=== PATIENT | male | born 1940 | race African-American/Black ===

== ENCOUNTER 2019-04-19 12:19 | Inpatient (IN) | payer OTHER ==
--- NOTE | 2019-04-19 12:48 | PDOC ---
History of Present Illness - General Chief Complaint: Coffee Ground Emesis Stated Complaint: Nausea/Vomiting Time Seen by Provider: 04/19/19 12:44 History Source: Patient, EMS, Correction Records Exam Limitations: Clinical Condition, Unresponsive, Other (Non-verbal) - History of Present Illness Initial Comments: History limited bc patient is non-verbal. Information obtained from EMS and [place] records. Mr. Kvng Pickering is a non-verbal 79 yo M coming from [facility] w a hx of chronic respiratory failure s/p tracheostomy, DVT on heparin, HTN, HLD, myasthenia gravis, GERD without known esophagitis, open angle glaucoma, chronic constipation, vitamin deficiencies, BPH, iron deficiency anemia, and contact dermatitis who presents to the [facility] with the chief complaint of nausea associated with 3 episodes of vomiting which was reported to be coffee ground emesis in appearance per the [place] records. PCP: Clif Woods PSH: Tracheostomy Social Hx: Resident of [facility]. Non-verbal. Trached. Allergies: NKA, NKDA Past History - Past Medical History Allergies/Adverse Reactions: Allergies Allergy/AdvReac Type Severity Reaction Status Date / Time No Known Allergies Allergy Verified 04/19/19 12:55 Home Medications: Ambulatory Orders Acetaminophen [Tylenol] 325 mg PEG QID PRN 04/19/19 Brimonidine Tartrate [Alphagan 0.15% -] 1 drop OU BID 04/19/19 FENTANYL 50mcg PATCH [DURAGESIC 50 mcg PATCH -] 1 each TD Q72H 04/19/19 Famotidine 20 mg PEG DAILY 04/19/19 Ferrous Sulfate 6.82 ml PEG DAILY 04/19/19 Heparin - 5,000 unit SQ BID 04/19/19 Latanoprost 0.005% Eye Drops [Xalatan 0.005% Eye Drops -] 1 drop OU HS 04/19/19 Metoprolol Tartrate 100 mg PEG BID 04/19/19 Multivitamin [One-Daily Multi-Vitamin] 1 each PEG DAILY 04/19/19 Polyethylene Glycol [Polyox Wsr-301] 1 gm PEG BID 04/19/19 Rosuvastatin Calcium [Crestor] 20 mg PEG HS 04/19/19 Sennosides [Senna] 2 tab PEG HS 04/19/19 Review of Systems - Review of Systems Able to Perform ROS?: No (Non-verbal) *Physical Exam - Physical Exam Comments: GENERAL: Contracted, skinny, malnourished. Looks uncomfortable and unresponsive. HEENT: Normocephalic, atraumatic. b/l cataracts. PERRL. CARDIOVASCULAR: Tachycardic rate PULMONARY: No evidence of respiratory distress. Lungs clear to auscultation bilaterally. No wheezing, rales or rhonchi. ABDOMEN: The Abdomen is soft with normal bowel sounds. There is a dislodged G-tube which is not secured to the abdomen which has coffee ground appearing material in it. There is no rigidity. Does not feel like a peritoneal abdomen. EXTREMITIES: Contracted. Limited ROM in all four extremities. SKIN: Warm, dry. Stage 1 sacral ulcer. Rectal Exam: positive: heme negative stool, normal exam, NL Prostate, normal rectal tone. negative: melena, decreased tone, heme positive stool, hemorrhoids Musculoskeletal: positive: Decreased Range of Motion Extremity: positive: Normal Capillary Refill, Pelvis Stable. negative: Normal Range of Motion Integumentary: positive: Normal Color, Dry, Warm Neurologic: positive: Respond to painful stimul ED Treatment Course - LABORATORY CBC & Chemistry Diagram: 04/19/19 13:00 04/19/19 13:00 Medical Decision Making - Medical Decision Making History limited bc patient is non-verbal. Information obtained from EMS and [place] records. Mr. Kvng Pickering is a non-verbal 79 yo M coming from [facility] w a hx of chronic respiratory failure s/p tracheostomy, DVT on heparin, HTN, HLD, myasthenia gravis, GERD without known esophagitis, open angle glaucoma, chronic constipation, vitamin deficiencies, BPH, iron deficiency anemia, and contact dermatitis who presents to the [facility] with the chief complaint of nausea associated with 3 episodes of vomiting which was reported to be coffee ground emesis in appearance per the [place] records. Vital Signs Temp Pulse Resp BP Pulse Ox 98.9 F 107 H 16 100/88 100 04/19/19 12:49 04/19/19 12:49 04/19/19 13:00 04/19/19 12:49 04/19/19 12:49 DDx IBNLT: GI bleed - Upper vs lower, gastroenteritis, PNA, electrolyte/ metabolic disturbance, Sepsis from other source. Plan: Labs, cultures, CXR, Abdominal CT, IV hydration, Admit to hospital. Labs show an elevated WBC count and lactic acid. - This clinical picture is highly suggestive of sepsis but we do not yet have a clear source. - Will obtain UA/UC - Starting the patient on empiric Vanc/Zosyn Jenny - Floor nurse at [facility]: 10:30 this morning noted that the patient had coffee ground vomitus. Patient vomited 3 times. Denies recent fever for past few days and patient is not currently taking Abx. CTAP: Unobtainable. We could not fit the patient in the CT machine secondary to knee contractures. I personally brought the patient to CT with a tech and respiratory therapist. We tried contorting the patient's body for 10 minutes in different ways but could not fit the knee through the machine secondary to his contractures. CBC,CMP WBC 18.7 K/mm3 (4.0-10.0) H 04/19/19 13:00 RBC 4.06 M/mm3 (4.00-5.60) 04/19/19 13:00 Hgb 11.4 GM/dL (11.7-16.9) L 04/19/19 13:00 Hct 35.4 % (35.4-49) 04/19/19 13:00 MCV 87.3 fl (80-96) 04/19/19 13:00 MCH 28.2 pg (25.7-33.7) 04/19/19 13:00 MCHC 32.3 g/dl (32.0-35.9) 04/19/19 13:00 RDW 16.6 % (11.9-15.9) H 04/19/19 13:00 Plt Count 371 K/MM3 (134-434) 04/19/19 13:00 MPV 9.5 fl (7.5-11.1) 04/19/19 13:00 Absolute Neuts (auto) 16.7 K/mm3 (1.5-8.0) H 04/19/19 13:00 Neutrophils % 89.1 % (42.8-82.8) H 04/19/19 13:00 Lymphocytes % 7.9 % (8-40) L 04/19/19 13:00 Monocytes % 2.7 % (3.8-10.2) L 04/19/19 13:00 Eosinophils % 0.2 % (0-4.5) 04/19/19 13:00 Basophils % 0.1 % (0-2.0) 04/19/19 13:00 Nucleated RBC % 0 % (0-0) 04/19/19 13:00 Platelet Estimate Adequate 04/19/19 13:00 Platelet Comment No clumping noted 04/19/19 13:00 Retic Count 1.50 % (0.5-1.5) 04/19/19 13:00 Sodium 139 mmol/L (136-145) 04/19/19 13:00 Potassium 4.4 mmol/L (3.5-5.1) 04/19/19 13:00 Chloride 104 mmol/L (98-107) 04/19/19 13:00 Carbon Dioxide 24 mmol/L (21-32) 04/19/19 13:00 Anion Gap 11 MMOL/L (8-16) 04/19/19 13:00 BUN 35.5 mg/dL (7-18) H 04/19/19 13:00 Creatinine 1.1 mg/dL (0.55-1.3) 04/19/19 13:00 Est GFR (CKD-EPI)AfAm 74.65 04/19/19 13:00 Est GFR (CKD-EPI)NonAf 64.41 04/19/19 13:00 Random Glucose 127 mg/dL (74-106) H 04/19/19 13:00 Lactic Acid 3.8 mmol/L (0.4-2.0) H* 04/19/19 14:10 Calcium 10.5 mg/dL (8.5-10.1) H 04/19/19 13:00 Ferritin 333.9 ng/ml (8-388) 04/19/19 13:00 Total Bilirubin 0.3 mg/dL (0.2-1) 04/19/19 13:00 AST 49 U/L (15-37) H 04/19/19 13:00 ALT 93 U/L (13-61) H 04/19/19 13:00 Alkaline Phosphatase 213 U/L (45-117) H 04/19/19 13:00 LD Total 309 U/L (87-246) H 04/19/19 13:00 Creatine Kinase 90 U/L (26-308) 04/19/19 13:00 Troponin I 0.02 ng/ml (0.00-0.05) 04/19/19 13:00 Total Protein 8.8 g/dl (6.4-8.2) H 04/19/19 13:00 Albumin 3.3 g/dl (3.4-5.0) L 04/19/19 13:00 - Hydrating patient bc of the elevated lactic. Patient accepted to hospitalist for admission for further treatment and disposition. *DC/Admit/Observation/Transfer Diagnosis at time of Disposition: Coffee ground emesis - Discharge Dispostion Condition at time of disposition: Stable Decision to Admit order: Yes - Referrals - Patient Instructions - Post Discharge Activity
[2019-04-19] MEDS ORDERED: SODIUM CHLORIDE 1,000 ML IV STA (12:55)
[2019-04-19] MEDS ORDERED: PANTOPRAZOLE SODIUM 80 MG in SODIUM CHLORIDE 100 ML IVPB SCH (13:00)
[2019-04-19 13:25] LABS: BASO % 0.1 % (0-2.0); EOS % 0.2 % (0-4.5); HEMATOCRIT 35.4 % (35.4-49); HEMOGLOBIN 11.4 GM/dL (11.7-16.9); LYMPH % 7.9 % (8-40); MCH 28.2 pg (25.7-33.7); MCHC 32.3 g/dl (32.0-35.9); MEAN CELL VOLUME 87.3 fl (80-96); MEAN PLT VOLUME 9.5 fl (7.5-11.1); MONO % 2.7 % (3.8-10.2); NEUT % 89.1 % (42.8-82.8); PLATELET COUNT 371 K/MM3 (134-434); RBC 4.06 M/mm3 (4.00-5.60); RDW 16.6 % (11.9-15.9); WHITE BLOOD COUNT 18.7 K/mm3 (4.0-10.0)
[2019-04-19] MEDS ORDERED: PANTOPRAZOLE SODIUM 40 MG VIAL ONE (13:26)
[2019-04-19 13:27] LABS: INR 1.08 (0.83-1.09); PROTHROMBIN TIME (PATIENT) 12.7 SEC (9.7-13.0)
[2019-04-19 13:44] LABS: ALBUMIN 3.3 g/dl (3.4-5.0); BILIRUBIN,TOTAL 0.3 mg/dL (0.2-1); BLOOD UREA NITROGEN 35.5 mg/dL (7-18); CALCIUM 10.5 mg/dL (8.5-10.1); CREATININE 1.1 mg/dL (0.55-1.3); POTASSIUM 4.4 mmol/L (3.5-5.1); TOT PROT 8.8 g/dl (6.4-8.2)
[2019-04-19 14:13] LABS: PLATELET ESTIMATE ADEQUATE
[2019-04-19] MEDS ORDERED: VANCOMYCIN 1,000 MG in DEXTROSE 5%-WATER - 250 ML IVPB ONE (15:12)
[2019-04-19] MEDS ORDERED: PIPERACILLIN/TAZOB 4.5 GM 4.5 GM in DEXTROSE 5%-WATER 100 ML IVPB ONE (15:12)
[2019-04-19] MEDS ORDERED: SODIUM CHLORIDE 0.9% 500 ML INFUS.BAG IV ONE (15:17)
--- NOTE | 2019-04-19 15:36 | PDOC ---
Documentation entered by Jennifer Aldana SCRIBE, acting as scribe for Katelyn Middleton MD. Katelyn Middleton MD: This documentation has been prepared by the carissaibJovan hannah Lincy, SCRIBE, under my direction and personally reviewed by me in its entirety. I confirm that the documentation accurately reflects all work, treatment, procedures, and medical decision making performed by me. Attending Attestation - Resident Resident Name: Stevie Kim - ED Attending Attestation I have performed the following: I have examined & evaluated the patient, The case was reviewed & discussed with the resident, I agree w/resident's findings & plan, Exceptions are as noted - HPI HPI: 04/19/19 14:17 79 yo h/o trach / peg , HTN, HLD, DVT (on Heparin), resp failure, myasthenia gravis and GERD presents to the emergency department via EMS from [facility] presents to the emergency department with coffee ground emesis. Unable to obtain history from the patient secondary to patient being nonverbal, additional records obtained from [place] records and [place] staff. Per [place] records, the patient had 3 episodes of coffee ground emesis today. Patient denies abdominal pain. ( shakes head no when asked) - Physicial Exam PE: 04/19/19 15:32 eyes open, awake. responsive. trach in place, CDI at site. lungs wtih crackles at base , heart reg RR no mrg abd soft peg in place with dark material in tubing , ext wwp contracted, - Medical Decision Making 04/19/19 14:29 Call placed to [facility] 2:23 pm, waiting for a call back from the Nurs concession supervisor medical doctor nuclear medicineROYCE Quiñonez. 04/19/19 15:33 79 yo male h/o trach/ peg chronic resp failure, myastenia gravis, from [facility] for coffe groun emesis over trach, on exam noted dark material peg tubing, dark stool on exam. differential anemia, gi bleed, other infection causing n/v such as pna or uti, obstruction, plan cta/p cxr ua cultures lactate. lactate noted to be 3, h/h normal. ua sent CXR with right sided infiltrate, hazy heart border. will cover for sepsis, infiltrate. vent associated infection vanco and zosyn. ct a/p pending. dr Monsivais from [facility] paged for more information regarding recent admission at [facility]. left message for patient Son on cell phone, awaiting call back. Heart Score/ECG Review #1 ECG reviewed & interpreted by me at: 14:44 General ECG Interpretation: Sinus Rhythm, Normal Rate (87), Normal Intervals, No acute ischemic changes
[2019-04-19] MEDS ORDERED: VANCOMYCIN 1 GRAM (PRE-DOCKED) 1,000 MG/250 ML BAG IVPB ONE (15:51)
[2019-04-19] MEDS ORDERED: PIPERACILLIN/TAZOB 3.375 GM 3.375 GM/50 ML BAG IVPB ONE (15:51)
[2019-04-19] MEDS ORDERED: PATIENT'S OWN MEDICATION (NON-FORMULARY) (Acetaminophen [Tylenol] 325 MG) PEG PRN (19:35)
[2019-04-19] MEDS ORDERED: ACETAMINOPHEN 160 MG/5 ML *Children Solution PEG PRN (19:54)
[2019-04-19] MEDS ORDERED: SODIUM CHLORIDE 1,000 ML IV SCH (20:15)
--- NOTE | 2019-04-19 20:55 | HP ---
Admitting History and Physical - Primary Care Physician PCP: Clif Woods - Admission Chief Complaint: coffee ground emesis History of Present Illness: 79 year old M with h/o chronic resp insufficiency s/p trach to vent, FTT s/p PEG placement, HTN, HLD, myastenia gravis, GERD, chronic constipation, BPH, anemia, and DVT on SC heparin presents from [facility] for evaluation of three episodes of coffee ground emesis today. Patient was brought in by EMS for further evaluation. Patient is non-verbal and is chronically vent dependent, therefore much history or symptoms were difficult to obtain. In ED: Vitals: T 98.1, HR 101bpm, BP 120/76, RR 18 CXR with right sided infiltrate, hazy heart border. Labs: WBC 18.7, lactate 3.8, AST 49, ALT 93 Pt given IV fluids + protonix 80mg IVSS There was a planned abd CT scan due to elevated lactate, however, ED staff had difficulty placing pt on table to perform scan. Patient admitted for further management of UGIB. History Source: Medical Record Limitations to Obtaining History: Clinical Condition, Other (non-verbal) - Past Medical History DENIAL MANAGEMENT REPRESENTATIVE: Yes: Other (myasthenia gravis) Pulmonary: Yes: O2 Dependent, Other (vent dependent) Gastrointestinal: Yes: GERD, Other (PEG) Musculoskeletal: Yes: Other (severe contractures) - Past Surgical History Additional Past Surgical History: Tracheostomy PEG insertion - Advance Directives Advance Directives: No: Living Will, Health Care Proxy, DNR, Organ Donor, Tissue Donor, MOLST - Smoking History Smoking history: Unknown if ever smoked Have you smoked in the past 12 months: No - Alcohol/Substance Use Hx Alcohol Use: No - Social History Usual Living Arrangement: Yes: [facility] ADL: Support Services History of Recent Travel: No Home Medications - Allergies Allergies/Adverse Reactions: Allergies Allergy/AdvReac Type Severity Reaction Status Date / Time No Known Allergies Allergy Verified 04/19/19 12:55 - Home Medications Home Medications: Ambulatory Orders Acetaminophen [Tylenol] 325 mg PEG QID PRN 04/19/19 Brimonidine Tartrate [Alphagan 0.15% -] 1 drop OU BID 04/19/19 FENTANYL 50mcg PATCH [DURAGESIC 50 mcg PATCH -] 1 each TD Q72H 04/19/19 Famotidine 20 mg PEG DAILY 04/19/19 Ferrous Sulfate 6.82 ml PEG DAILY 04/19/19 Heparin - 5,000 unit SQ BID 04/19/19 Latanoprost 0.005% Eye Drops [Xalatan 0.005% Eye Drops -] 1 drop OU HS 04/19/19 Metoprolol Tartrate 100 mg PEG BID 04/19/19 Multivitamin [One-Daily Multi-Vitamin] 1 each PEG DAILY 04/19/19 Polyethylene Glycol [Polyox Wsr-301] 1 gm PEG BID 04/19/19 Rosuvastatin Calcium [Crestor] 20 mg PEG HS 04/19/19 Sennosides [Senna] 2 tab PEG HS 04/19/19 Family Disease History - Family Disease History Family History: Unable to Obtain (due to clinical status) Review of Systems Unable to obtain ROS, reason: due to clinical status Physical Examination Vital Signs: Vital Signs Temperature 98.8 F 04/19/19 16:26 Pulse Rate 93 H 04/19/19 16:26 Respiratory Rate 16 04/19/19 19:14 Blood Pressure 128/73 04/19/19 16:26 O2 Sat by Pulse Oximetry (%) 100 04/19/19 16:26 Constitutional: Yes: Calm, Cachectic, Thin Eyes: Yes: Conjunctiva Clear, PERRL HENT: Yes: Atraumatic, Normocephalic Neck: Yes: Supple, Decreased ROM Cardiovascular: Yes: Regular Rate and Rhythm Respiratory: Yes: Regular, Mechanically Ventilated Gastrointestinal: Yes: Normal Bowel Sounds, Soft Renal/: Yes: Incontinence (adult diaper in place) Breast(s): Yes: WNL Musculoskeletal: Yes: Joint Stiffness, Muscle Weakness Extremities: Yes: Other (contractures) Edema: No Peripheral Pulses WNL: Yes Peripheral Pulses: Left Radial: 2+, Right Radial: 2+ Integumentary: Yes: Venous Stasis Changes Labs: CBC, BMP 04/19/19 13:00 04/19/19 13:00 Imaging - Results Chest X-ray: Report Reviewed (CXR 04/19/2019 Chest: Infiltrate A single AP view of the chest has been submitted. There is a scoliosis with convexity to the right , tracheostomy tube with tip well above michael, normal heart, prominent knob and normal ana. The lungs are well expanded with some increased markings in the right hemithorax suggestive of atelectasis or infiltrate at the right base. There is fluid in the horizontal fissure. The left lung is relatively clear. The angles are sharp and the soft tissues are intact. Correlation recommended. Follow-up imaging suggested. Reported By: Chadwick Mensah MD 04/19 3800) X-ray: Report Reviewed (abd x-ray 04/19/2019 Impression: A single view of the abdomen does not include the pelvis. The distended loops of both large and small bowel but no sign of free air, scoliosis and convexity to the right. G- tube present. There is hand artifact at the right base. The findings could represent an ileus though a developing obstruction cannot be excluded. For more complete evaluation, correlation with the scheduled CT scan is suggested.) Problem List - Problems (1) Glaucoma Assessment/Plan: continue brimonidine and xalatan drops Code(s): H40.9 - UNSPECIFIED GLAUCOMA (2) Aspiration into airway Assessment/Plan: pt has dried blood in nares and most likely aspirated into resp tract Start vanco/zosyn trend wBC and temp curve Code(s): T17.908A - UNSP FB IN RESP TRACT, PART UNSP CAUSING OTH INJURY, INIT (3) Hyperlipidemia Assessment/Plan: crestor 20mg qhs Code(s): E78.5 - HYPERLIPIDEMIA, UNSPECIFIED (4) Chronic respiratory insufficiency Assessment/Plan: maintain vent ABG PRN if he decompensates duonebs QID Code(s): R06.89 - OTHER ABNORMALITIES OF BREATHING (5) DVT (deep venous thrombosis) Assessment/Plan: hold SC heparin RADHA stockings Code(s): I82.409 - ACUTE EMBOLISM AND THOMBOS UNSP DEEP VN UNSP LOWER EXTREMITY (6) Prophylactic measure Assessment/Plan: turn and position q2hrs hold senna/miralax Code(s): Z29.9 - ENCOUNTER FOR PROPHYLACTIC MEASURES, UNSPECIFIED (7) Coffee ground emesis Assessment/Plan: protonix drip trend H/H consider GI consult if bleeding recurs NPO for now PEG in place hold metoprolol as pt is normotensive Code(s): K92.0 - HEMATEMESIS (8) Chronic pain disorder Assessment/Plan: Fentanyl patch Q72hrs Code(s): G89.4 - CHRONIC PAIN SYNDROME Assessment/Plan code status: Full Attempts should be made to have family meeting to determine goals of care. Visit type - Emergency Visit Emergency Visit: Yes ED Registration Date: 04/19/19 Care time: The patient presented to the Emergency Department on the above date and was hospitalized for further evaluation of their emergent condition. - New Patient This patient is new to me today: Yes Date on this admission: 04/19/19 - Critical Care Critical Care patient: No
[2019-04-19] MEDS: ALBUTEROL SO4 2.5/IPRATROPIUM 0.5 INH SOL 3 ML VIAL.NEB. NEB SCH (23:30)
[2019-04-19] MEDS: BRIMONIDINE TARTRATE 0.15% OPHTHALMIC 5 ML BOTTLE OU SCH (23:57)
[2019-04-19] MEDS: ROSUVASTATIN CA 20 MG TABLET (FP) PO SCH (23:57)
[2019-04-19] MEDS: LATANOPROST 0.005% OPHTH SOLN 2.5ML BOTTLE OU SCH (23:58)
[2019-04-20] MEDS ORDERED: DEXTROSE 5%-WATER - 50 ML IVPB ONE ×3 (01:13→16:56)
[2019-04-20] MEDS ORDERED: PIPERACILLIN/TAZOBACTAM 3.375 GM VIAL IVPB ONE ×3 (01:13→16:56)
[2019-04-20] MEDS: PANTOPRAZOLE SODIUM 80 MG in SODIUM CHLORIDE 100 ML IVPB SCH ×4 (01:35→16:23)
[2019-04-20] MEDS ORDERED: PIPERACILLIN/TAZOB 3.375 GM 3.375 GM in DEXTROSE 5%-WATER - 50 ML IVPB SCH (02:00)
[2019-04-20] MEDS: PIPERACILLIN/TAZOB 3.375 GM 3.375 GM in DEXTROSE 5%-WATER - 50 ML IVPB SCH ×3 (02:25→17:13)
[2019-04-20] MEDS: fentaNYL 50mcg/hr PATCH.TD72 TD SCH (06:07)
[2019-04-20] MEDS: ALBUTEROL SO4 2.5/IPRATROPIUM 0.5 INH SOL 3 ML VIAL.NEB. NEB SCH ×4 (08:00→20:20)
[2019-04-20 08:20] LABS: HEMATOCRIT 28.4 % (35.4-49); HEMOGLOBIN 9.3 GM/dL (11.7-16.9); MCH 28.6 pg (25.7-33.7); MCHC 32.7 g/dl (32.0-35.9); MEAN CELL VOLUME 87.4 fl (80-96); MEAN PLT VOLUME 9.5 fl (7.5-11.1); PLATELET COUNT 221 K/MM3 (134-434); RBC 3.25 M/mm3 (4.00-5.60); RDW 16.3 % (11.9-15.9); WHITE BLOOD COUNT 10.5 K/mm3 (4.0-10.0)
[2019-04-20 08:22] LABS: INR 0.97 (0.83-1.09); PROTHROMBIN TIME (PATIENT) 11.5 SEC (9.7-13.0)
[2019-04-20 08:24] LABS: ACTIVATED PTT 17.6 SECONDS (25.2-36.5)
[2019-04-20 08:37] LABS: ALBUMIN 2.8 g/dl (3.4-5.0); BILIRUBIN,TOTAL 0.4 mg/dL (0.2-1); BLOOD UREA NITROGEN 25.6 mg/dL (7-18); CALCIUM 9.5 mg/dL (8.5-10.1); CREATININE 0.9 mg/dL (0.55-1.3); MAGNESIUM 2.4 mg/dL (1.8-2.4); PHOSPHOROUS 3.2 mg/dL (2.5-4.9); POTASSIUM 4.5 mmol/L (3.5-5.1); TOT PROT 7.4 g/dl (6.4-8.2)
[2019-04-20] MEDS ORDERED: VANCOMYCIN 1 GRAM (PRE-DOCKED) 1,000 MG/250 ML BAG IVPB ONE (10:00)
[2019-04-20] MEDS: BRIMONIDINE TARTRATE 0.15% OPHTHALMIC 5 ML BOTTLE OU SCH ×2 (11:46→21:55)
--- NOTE | 2019-04-20 12:26 | EKG ---
Test Reason : Blood Pressure : / mmHG Vent. Rate : 087 BPM Atrial Rate : 087 BPM P-R Int : 176 ms QRS Dur : 078 ms QT Int : 392 ms P-R-T Axes : 064 -14 032 degrees QTc Int : 471 ms POOR DATA QUALITY, INTERPRETATION MAY BE ADVERSELY AFFECTED NORMAL SINUS RHYTHM POSSIBLE LEFT ATRIAL ENLARGEMENT SEPTAL INFARCT , AGE UNDETERMINED ABNORMAL ECG NO PREVIOUS ECGS AVAILABLE Confirmed by WOODY QUIROS, HENRI ([id number]) on 04/20/2019 12:25:55 PM Referred By: Confirmed By:HENRI MCKAY MD
[2019-04-20] MEDS ORDERED: PT OWN MED DRAWER 7, Y5N ONE (12:28)
[2019-04-20] MEDS ORDERED: PNEUMOC 13-VAL CONJ-DIP CRM/PF 0.5 ML DISP.SYRIN IM ONE (12:30)
--- NOTE | 2019-04-20 13:14 | CON.ID ---
Consult Consult Specialty:: infectious diseases Referred by:: Dinora - Past Medical History TILE MECHANIC: Yes: Other (myasthenia gravis) Pulmonary: Yes: O2 Dependent, Other (vent dependent) Gastrointestinal: Yes: GERD, Other (PEG) Musculoskeletal: Yes: Other (severe contractures) - Alcohol/Substance Use Hx Alcohol Use: No - Smoking History Smoking history: Unknown if ever smoked Have you smoked in the past 12 months: No - Social History ADL: Support Services History of Recent Travel: No Home Medications - Allergies Allergies/Adverse Reactions: Allergies Allergy/AdvReac Type Severity Reaction Status Date / Time No Known Allergies Allergy Verified 04/19/19 12:55 - Home Medications Home Medications: Ambulatory Orders Acetaminophen [Tylenol] 325 mg PEG QID PRN 04/19/19 Brimonidine Tartrate [Alphagan 0.15% -] 1 drop OU BID 04/19/19 FENTANYL 50mcg PATCH [DURAGESIC 50 mcg PATCH -] 1 each TD Q72H 04/19/19 Famotidine 20 mg PEG DAILY 04/19/19 Ferrous Sulfate 6.82 ml PEG DAILY 04/19/19 Heparin - 5,000 unit SQ BID 04/19/19 Latanoprost 0.005% Eye Drops [Xalatan 0.005% Eye Drops -] 1 drop OU HS 04/19/19 Metoprolol Tartrate 100 mg PEG BID 04/19/19 Multivitamin [One-Daily Multi-Vitamin] 1 each PEG DAILY 04/19/19 Polyethylene Glycol [Polyox Wsr-301] 1 gm PEG BID 04/19/19 Rosuvastatin Calcium [Crestor] 20 mg PEG HS 04/19/19 Sennosides [Senna] 2 tab PEG HS 04/19/19 Physical Exam Vital Signs: Vital Signs Temperature 98.1 F 04/19/19 21:32 Pulse Rate 104 H 04/20/19 01:08 Respiratory Rate 04/20/19 12:39 Blood Pressure 148/76 04/20/19 01:08 O2 Sat by Pulse Oximetry (%) 100 04/20/19 01:54 Labs: CBC, BMP 04/20/19 07:40 04/20/19 07:40
--- NOTE | 2019-04-20 15:15 | PN ---
Progress Note, Physician Chief Complaint: Coffee Ground Emesis Pneumonia History of Present Illness: Previous notes and events reviewed awake and alert, non verbal mechanically ventilated NAD - Current Medication List Current Medications: Active Medications Acetaminophen (Tylenol *Children Solution* -) 320 mg PEG Q6H PRN PRN Reason: FEVER Albuterol/Ipratropium (Duoneb -) 1 amp NEB RQID [facility] Last Admin: 04/20/19 12:00 Dose: 1 amp Brimonidine Tartrate (Alphagan 0.15% -) 1 drop OU BID [facility] Last Admin: 04/20/19 11:46 Dose: 1 drop Fentanyl (Duragesic 50mcg Patch -) 1 patch TD Q72H [facility] Last Admin: 04/20/19 06:07 Dose: Not Given Pantoprazole Sodium 80 mg/ (Sodium Chloride) 100 mls @ 10 mls/hr IVPB Q10H [facility] Last Admin: 04/20/19 12:33 Dose: 10 mls/hr Sodium Chloride (Normal Saline -) 1,000 mls @ 50 mls/hr IV ASDIR [facility] Stop: 04/20/19 20:06 Last Admin: 04/20/19 01:48 Dose: 50 mls/hr Piperacillin Sod/Tazobactam (Sod 3.375 gm/ Dextrose) 50 mls @ 100 mls/hr IVPB Q8H-IV [facility]; Protocol Latanoprost (Xalatan 0.005% Eye Drops -) 1 drop OU [facility] Last Admin: 04/19/19 23:58 Dose: 1 drop Rosuvastatin Calcium (Crestor -) 20 mg PO [facility] Last Admin: 04/19/19 23:57 Dose: 20 mg - Objective Vital Signs: Vital Signs Temperature 98.1 F 04/19/19 21:32 Pulse Rate 104 H 04/20/19 01:08 Respiratory Rate 04/20/19 12:39 Blood Pressure 148/76 04/20/19 01:08 O2 Sat by Pulse Oximetry (%) 100 04/20/19 10:00 Constitutional: Yes: No Distress, Calm Eyes: Yes: Conjunctiva Clear HENT: Yes: Atraumatic Neck: Yes: Other (trach) Cardiovascular: Yes: Tachycardia Respiratory: Yes: Diminished, Mechanically Ventilated Gastrointestinal: Yes: Normal Bowel Sounds, Soft, Other (G tube) Genitourinary: Yes: Incontinence Musculoskeletal: Yes: Muscle Weakness Extremities: Yes: WNL Edema: No Neurological: Yes: Alert, Pre-Existing Deficit Psychiatric: Yes: Alert Labs: CBC, BMP 04/20/19 07:40 04/20/19 07:40 INR, PTT INR 0.97 (0.83-1.09) 04/20/19 07:40 - ....Imaging Chest X-ray: Report Reviewed X-ray: Report Reviewed Problem List - Problems (1) Aspiration into airway Assessment/Plan: -Pulm consult -CXR shows increased markings in the right hemithorax suggestive of atelectasis or infiltrate at the right lung base, fluid in the horizontal fissure -bronchodilators -suction as needed -Zosyn Code(s): T17.908A - UNSP FB IN RESP TRACT, PART UNSP CAUSING OTH INJURY, INIT (2) Chronic respiratory insufficiency Assessment/Plan: -Pulm on board -mechanical ventilator -bronchodilators -keep SpO2 >90% Code(s): R06.89 - OTHER ABNORMALITIES OF BREATHING (3) Coffee ground emesis Assessment/Plan: -GI on board -Hg 11.4-->9.3 -Iron panel ordered -monitor Hg daily -transfuse for Hg <8.0 -stool OB neg Code(s): K92.0 - HEMATEMESIS (4) Glaucoma Assessment/Plan: -Alphagan and Latanoprast Code(s): H40.9 - UNSPECIFIED GLAUCOMA (5) Hyperlipidemia Assessment/Plan: -Crestor Code(s): E78.5 - HYPERLIPIDEMIA, UNSPECIFIED (6) Anemia Assessment/Plan: -drop in Hg 11.4-9.3 -serial CBCs -monitor Hg daily -transfuse for Hg <8.0 -iron panel ordered Code(s): D64.9 - ANEMIA, UNSPECIFIED (7) Chronic pain disorder Assessment/Plan: -Fentanyl patch Code(s): G89.4 - CHRONIC PAIN SYNDROME Assessment/Plan see problem list SCDs
--- NOTE | 2019-04-20 15:17 | PN ---
Progress Note (short form) - Note Progress Note: PULMONARY CONSULTATION DICTATED 04/20/19 IMP CHRONIC RESPIRATORY FAILURE ? ASPIRATION COFFEE GROUND EMESIS MYASTHENIA GRAVIS HTN HLD S/P TRACH/PEG ANEMIA PLAN VENT SUPPORT ON AC MODE TRACHEAL SUCTIONING INHALED BRONCHODILATORS ABX PER ID F/U CHEST X-RAY MONITOR H+H NORMAL TRANSFUSION THRESHOLD DR SETH Problem List - Problems (1) Aspiration into airway Code(s): T17.908A - UNSP FB IN RESP TRACT, PART UNSP CAUSING OTH INJURY, INIT (2) Chronic respiratory insufficiency Code(s): R06.89 - OTHER ABNORMALITIES OF BREATHING (3) Coffee ground emesis Code(s): K92.0 - HEMATEMESIS (4) DVT (deep venous thrombosis) Code(s): I82.409 - ACUTE EMBOLISM AND THOMBOS UNSP DEEP VN UNSP LOWER EXTREMITY (5) Glaucoma Code(s): H40.9 - UNSPECIFIED GLAUCOMA
[2019-04-20 15:19] LABS: EPI CELLS 2.9 /HPF (0-5/HPF); HYALINE CASTS 19 /lpf (0-8); URINE APPEARANCE CLEAR; URINE BILIRUBIN NEGATIVE (NEGATIVE); URINE COLOR YELLOW; URINE GLUCOSE (UA) NEGATIVE (NEGATIVE); URINE KETONE NEGATIVE (NEGATIVE); URINE LEUK ESTERASE 2+ (NEGATIVE); URINE NITRITE POSITIVE (NEGATIVE); URINE PROTEIN 1+ (NEGATIVE); URINE RBC 2 /hpf (0-4); URINE UROBILINOGEN 0.2 mg/dL (0.2-1.0); URINE WBC 98 /hpf (0-5)
[2019-04-20 16:12] LABS: SERUM IRON SATURATION 15 % (15-55); TOTAL IRON BINDING CAPACITY 397 ug/dL (250-450)
--- NOTE | 2019-04-20 16:32 | CON.GI ---
Consult Consult Specialty:: Gastroenterology Referred by:: Tammy Perkins NP Reason for Consultation:: Coffee grd emesis - History of Present Illness Chief Complaint: Noncommunicative History of Present Illness: 79M transferred from [facility] for coffee grd emesis. NO melena reported. I lavaged the NG tube. NO blood found. There are no endoscopies on record at this hospital - History Source History Provided By: Medical Record Limitations to Obtaining History: Intubated - Past Medical History B[employer]OM: Yes: Other (myasthenia gravis) Cardio/Vascular: Yes: Hyperlipdemia Pulmonary: Yes: O2 Dependent, Other (vent dependent) Gastrointestinal: Yes: GERD, Other (PEG) Musculoskeletal: Yes: Other (severe contractures) Additional Medical History: glaucoma - Past Surgical History Additional Surgical History: has vertical upper midline incision that may be due to G tube insertion - Alcohol/Substance Use Hx Alcohol Use: No (inknown) - Smoking History Smoking history: Unknown if ever smoked Have you smoked in the past 12 months: No - Social History Usual Living Arrangement: Halfway ADL: Support Services History of Recent Travel: No Home Medications - Allergies Allergies/Adverse Reactions: Allergies Allergy/AdvReac Type Severity Reaction Status Date / Time No Known Allergies Allergy Verified 04/19/19 12:55 - Home Medications Home Medications: Ambulatory Orders Acetaminophen [Tylenol] 325 mg PEG QID PRN 04/19/19 Brimonidine Tartrate [Alphagan 0.15% -] 1 drop OU BID 04/19/19 FENTANYL 50mcg PATCH [DURAGESIC 50 mcg PATCH -] 1 each TD Q72H 04/19/19 Famotidine 20 mg PEG DAILY 04/19/19 Ferrous Sulfate 6.82 ml PEG DAILY 04/19/19 Heparin - 5,000 unit SQ BID 04/19/19 Latanoprost 0.005% Eye Drops [Xalatan 0.005% Eye Drops -] 1 drop OU HS 04/19/19 Metoprolol Tartrate 100 mg PEG BID 04/19/19 Multivitamin [One-Daily Multi-Vitamin] 1 each PEG DAILY 04/19/19 Polyethylene Glycol [Polyox Wsr-301] 1 gm PEG BID 04/19/19 Rosuvastatin Calcium [Crestor] 20 mg PEG HS 04/19/19 Sennosides [Senna] 2 tab PEG HS 04/19/19 Family Disease History - Family Disease History Family History: Unable to Obtain Review of Systems Unable to obtain ROS, reason: myasthenia gravis Physical Exam-GI Vital Signs: Vital Signs Temperature 98.3 F 04/20/19 14:00 Pulse Rate 104 H 04/20/19 14:00 Respiratory Rate 19 04/20/19 15:44 Blood Pressure 125/73 04/20/19 14:00 O2 Sat by Pulse Oximetry (%) 100 04/20/19 10:00 CBC,CMP WBC 10.5 K/mm3 (4.0-10.0) H 04/20/19 07:40 RBC 3.25 M/mm3 (4.00-5.60) L 04/20/19 07:40 Hgb 9.3 GM/dL (11.7-16.9) L 04/20/19 07:40 Hct 28.4 % (35.4-49) L D 04/20/19 07:40 MCV 87.4 fl (80-96) 04/20/19 07:40 MCH 28.6 pg (25.7-33.7) 04/20/19 07:40 MCHC 32.7 g/dl (32.0-35.9) 04/20/19 07:40 RDW 16.3 % (11.9-15.9) H 04/20/19 07:40 Plt Count 221 K/MM3 (134-434) D 04/20/19 07:40 MPV 9.5 fl (7.5-11.1) 04/20/19 07:40 Absolute Neuts (auto) 16.7 K/mm3 (1.5-8.0) H 04/19/19 13:00 Neutrophils % 89.1 % (42.8-82.8) H 04/19/19 13:00 Lymphocytes % 7.9 % (8-40) L 04/19/19 13:00 Monocytes % 2.7 % (3.8-10.2) L 04/19/19 13:00 Eosinophils % 0.2 % (0-4.5) 04/19/19 13:00 Basophils % 0.1 % (0-2.0) 04/19/19 13:00 Nucleated RBC % 0 % (0-0) 04/19/19 13:00 Platelet Estimate Adequate 04/19/19 13:00 Platelet Comment No clumping noted 04/19/19 13:00 Retic Count 1.50 % (0.5-1.5) 04/19/19 13:00 Sodium 141 mmol/L (136-145) 04/20/19 07:40 Potassium 4.5 mmol/L (3.5-5.1) 04/20/19 07:40 Chloride 110 mmol/L (98-107) H 04/20/19 07:40 Carbon Dioxide 25 mmol/L (21-32) 04/20/19 07:40 Anion Gap 6 MMOL/L (8-16) L 04/20/19 07:40 BUN 25.6 mg/dL (7-18) H 04/20/19 07:40 Creatinine 0.9 mg/dL (0.55-1.3) 04/20/19 07:40 Est GFR (CKD-EPI)AfAm 95.15 04/20/19 07:40 Est GFR (CKD-EPI)NonAf 82.09 04/20/19 07:40 Random Glucose 91 mg/dL (74-106) 04/20/19 07:40 Lactic Acid 1.4 mmol/L (0.4-2.0) 04/20/19 00:45 Calcium 9.5 mg/dL (8.5-10.1) 04/20/19 07:40 Phosphorus 3.2 mg/dL (2.5-4.9) 04/20/19 07:40 Magnesium 2.4 mg/dL (1.8-2.4) 04/20/19 07:40 Iron 58 ug/dL (38-169) 04/19/19 13:00 TIBC 397 ug/dL (250-450) 04/19/19 13:00 Iron Saturation 15 % (15-55) 04/19/19 13:00 Unsaturated IBC 339 ug/dL (111-343) 04/19/19 13:00 Ferritin 333.9 ng/ml (8-388) 04/19/19 13:00 Total Bilirubin 0.4 mg/dL (0.2-1) 04/20/19 07:40 AST 31 U/L (15-37) 04/20/19 07:40 ALT 63 U/L (13-61) H 04/20/19 07:40 Alkaline Phosphatase 171 U/L (45-117) H 04/20/19 07:40 LD Total 309 U/L (87-246) H 04/19/19 13:00 Creatine Kinase 90 U/L (26-308) 04/19/19 13:00 Troponin I 0.02 ng/ml (0.00-0.05) 04/19/19 13:00 Total Protein 7.4 g/dl (6.4-8.2) 04/20/19 07:40 Albumin 2.8 g/dl (3.4-5.0) L 04/20/19 07:40 Current Medications Generic Name Dose Route Start Last Admin Trade Name Freq PRN Reason Stop Dose Admin Acetaminophen 320 mg 04/19/19 19:54 Tylenol *Children Solution* - PEG Q6H PRN FEVER Albuterol/Ipratropium 1 amp 04/19/19 22:00 04/20/19 15:40 Duoneb - NEB 1 amp RQID [facility] Administration Brimonidine Tartrate 1 drop 04/19/19 22:00 04/20/19 11:46 Alphagan 0.15% - OU 1 drop BID [facility] Administration Fentanyl 1 patch 04/19/19 19:45 04/20/19 06:07 Duragesic 50mcg Patch - TD Not Given Q72H [facility] Pantoprazole Sodium 80 mg/ 100 mls @ 10 mls/hr 04/19/19 20:00 04/20/19 16:23 Sodium Chloride IVPB Not Given Q10H GODWIN 8 MG/HR Sodium Chloride 1,000 mls @ 50 mls/hr 04/19/19 20:15 04/20/19 01:48 Normal Saline - IV 04/20/19 20:06 50 mls/hr ASDIR [facility] Administration Piperacillin Sod/Tazobactam 50 mls @ 100 mls/hr 04/20/19 18:00 Sod 3.375 gm/ Dextrose IVPB Q8H-IV [facility] Protocol Latanoprost 1 drop 04/19/19 22:00 04/19/19 23:58 Xalatan 0.005% Eye Drops - OU 1 drop HS [facility] Administration Rosuvastatin Calcium 20 mg 04/19/19 22:00 04/19/19 23:57 Crestor - PO 20 mg HS [facility] Administration Constitutional: Yes: Calm Eyes: Yes: Conjunctiva Clear HENT: Yes: Normocephalic Neck: Yes: Other (tracheostomy intubated) Cardiovascular: Yes: Regular Rate and Rhythm Respiratory: Yes: CTA Bilaterally Gastrointestinal Inspection: Yes: Other (28Fr G tube) ...Auscultate: Yes: Normoactive Bowel Sounds ...Palpate: Yes: Soft, Other (no masses) ...Rectal Exam: Yes: Guaiac Negative (brown guaiac negative stool), Other (2+ prostate) Labs: CBC, BMP 04/20/19 07:40 04/20/19 07:40 INR, PTT INR 0.97 (0.83-1.09) 04/20/19 07:40 Problem List - Problems (1) Coffee ground emesis Assessment/Plan: No overt bleeding identified. Kvng may have vomited stagnant small bowel contents. If overt bleeding ensues an EGD will need to be considered. He may have narcotic effect on the bowels causing N/V Code(s): K92.0 - HEMATEMESIS (2) Anemia Code(s): D64.9 - ANEMIA, UNSPECIFIED (3) Myasthenia gravis Code(s): G70.00 - MYASTHENIA GRAVIS WITHOUT (ACUTE) EXACERBATION (4) Tracheostomy in place Code(s): Z93.0 - TRACHEOSTOMY STATUS (5) Gastrostomy in place Code(s): Z93.1 - GASTROSTOMY STATUS (6) DVT (deep venous thrombosis) Code(s): I82.409 - ACUTE EMBOLISM AND THOMBOS UNSP DEEP VN UNSP LOWER EXTREMITY Assessment/Plan Impression: - Nonsustained coffee grd emesis perhaps narcotic effect on the bowel compounding his bedridden state and leading to vomiting of stagnant small bowel contents. NO overt hemorrhage has manifested as yet Plan: -- Reglan IVPB --PPI empirically -- If no further vomiting can resume feedings in AM
[2019-04-20] MEDS ORDERED: METOCLOPRAMIDE HCL INJECTION 10 MG/2 ML VIAL IVPUSH PRN (16:48)
--- NOTE | 2019-04-20 17:57 | CONS ---
DATE OF CONSULTATION: 04/20/2019 PULMONARY CONSULTATION REFERRING PHYSICIAN: Ken Juares M.D. HISTORY OF PRESENT ILLNESS: The patient is a 79-year-old black male past medical history of trach, chronic respiratory failure, status post trach, PEG, hypertension, hyperlipidemia, DVT, myasthenia gravis, GERD, nonverbal, admitted to [facility] from intermediate secondary to coffee ground emesis. Patient apparently was at the intermediate had 3 episodes of coffee ground emesis. He was transferred to [facility] with the above. In the ER, he is noted to have increasing tracheal secretions. His chest x-ray performed revealed some haziness in the right lung field. He was admitted to floor and started on broad-spectrum antibiotics and possible aspiration. No further history is available at this time. The patient awake but not responsive to verbal stimuli. PAST MEDICAL HISTORY: Again includes chronic respiratory failure on ventilatory support, DVT, hypertension, hyperlipidemia status post trach/PEG, myasthenia, GERD. CURRENT MEDICATIONS: piperacillin, DuoNeb, normal saline, Crestor, Duragesic, Xalatan eyedrops, and Tapazole. REVIEW OF SYSTEMS: Unable to obtain. PHYSICAL EXAMINATION: GENERAL: The patient is a thin black male, awake, nonverbal, in no acute distress on ventilatory support. He is afebrile. VITAL SIGNS: Blood pressure 125/73, respiratory rate 18, O2 saturation is 100% . HEENT: Normocephalic, atraumatic. NECK: Supple. Trach is patent. HEART: Regular S1, S2. CHEST: Scattered rhonchi. ABDOMEN: Soft, bowel sounds positive. EXTREMITIES: No cyanosis, edema. LABORATORY: WBC is 10.5, hemoglobin 9.3, hematocrit 28.4, platelet count 221, 000. Of note on admission WBC was 18.7, hemoglobin 11.4 and hematocrit 35.4 with platelet count 371,000. BUN is 25, creatinine is 0.9. Chest x-ray increased markings in right hemithorax. IMPRESSION: 1. Chronic respiratory failure. 2. Coffee ground emesis. 3. Questionable aspiration, likely aspiration. 4. Myasthenia gravis. 5. Hypertension. 6. Hyperlipidemia. 7. Status post trach PEG. PLAN: Continue vent support on ac mode, tracheal suctioning, inhaled bronchodilators, antibiotics as per infectious disease, obtain follow up chest x-ray, monitor hemoglobin and hematocrit, normal transfusion threshold and GI evaluation. SHAWN SETH M.D. CHRISTI/[id number] MTDD
[2019-04-20] MEDS: ROSUVASTATIN CA 20 MG TABLET (FP) PO SCH (21:55)
[2019-04-20] MEDS: LATANOPROST 0.005% OPHTH SOLN 2.5ML BOTTLE OU SCH (21:55)
[2019-04-20] MEDS: PANTOPRAZOLE SODIUM 40 MG VIAL IVPUSH SCH (21:55)
[2019-04-21] MEDS ORDERED: PIPERACILLIN/TAZOBACTAM 3.375 GM VIAL IVPB ONE ×3 (01:23→17:24)
[2019-04-21] MEDS ORDERED: DEXTROSE 5%-WATER - 50 ML IVPB ONE ×3 (01:24→17:24)
[2019-04-21] MEDS: PIPERACILLIN/TAZOB 3.375 GM 3.375 GM in DEXTROSE 5%-WATER - 50 ML IVPB SCH ×3 (01:39→18:16)
[2019-04-21 07:55] LABS: ALBUMIN 2.6 g/dl (3.4-5.0); BILIRUBIN,TOTAL 0.5 mg/dL (0.2-1); BLOOD UREA NITROGEN 19.2 mg/dL (7-18); CALCIUM 9.1 mg/dL (8.5-10.1); CREATININE 0.9 mg/dL (0.55-1.3); POTASSIUM 3.8 mmol/L (3.5-5.1); TOT PROT 6.9 g/dl (6.4-8.2)
[2019-04-21] MEDS: ALBUTEROL SO4 2.5/IPRATROPIUM 0.5 INH SOL 3 ML VIAL.NEB. NEB SCH ×4 (09:27→20:50)
--- NOTE | 2019-04-21 10:25 | PN ---
Progress Note (short form) - Note Progress Note: Awake in NAD on AC Mode of vent, 40% FiO2. No acute events documented overnight. Intake & Output 04/18/19 04/19/19 04/20/19 04/21/19 23:59 23:59 23:59 23:59 Intake Total 1100 450 Output Total 700 100 Balance 400 350 Weight 132 lb 2 oz Last Vital Signs Temp Pulse Resp BP Pulse Ox 98.7 F 103 H 16 130/80 95 04/21/19 06:00 04/21/19 06:00 04/21/19 09:44 04/21/19 06:00 04/20/19 21:00 Active Medications Acetaminophen (Tylenol *Children Solution* -) 320 mg PEG Q6H PRN PRN Reason: FEVER Albuterol/Ipratropium (Duoneb -) 1 amp NEB RQID [facility] Last Admin: 04/21/19 09:27 Dose: 1 amp Brimonidine Tartrate (Alphagan 0.15% -) 1 drop OU BID [facility] Last Admin: 04/20/19 21:55 Dose: 1 drop Fentanyl (Duragesic 50mcg Patch -) 1 patch TD Q72H [facility] Last Admin: 04/20/19 06:07 Dose: Not Given Piperacillin Sod/Tazobactam (Sod 3.375 gm/ Dextrose) 50 mls @ 100 mls/hr IVPB Q8H-IV [facility]; Protocol Last Admin: 04/21/19 01:39 Dose: 100 mls/hr Latanoprost (Xalatan 0.005% Eye Drops -) 1 drop OU HS [facility] Last Admin: 04/20/19 21:55 Dose: 1 drop Metoclopramide HCl (Reglan Injection -) 10 mg IVPUSH Q8H PRN PRN Reason: NAUSEA AND/OR VOMITING Pantoprazole Sodium (Protonix Iv) 40 mg IVPUSH BID [facility] Last Admin: 04/20/19 21:55 Dose: 40 mg Rosuvastatin Calcium (Crestor -) 20 mg PO HS [facility] Last Admin: 04/20/19 21:55 Dose: 20 mg Constitutional: Yes: No Distress Eyes: Yes: Conjunctiva Clear HENT: Yes: Atraumatic Neck: Yes: Other (trach) Cardiovascular: Yes: S1S2 Respiratory: Yes: Diminished, Mechanically Ventilated Gastrointestinal: Yes: Normal Bowel Sounds, Soft, Other (G tube) Genitourinary: Yes: Incontinence Musculoskeletal: Yes: Muscle Weakness Extremities: Yes: WNL Edema: No Neurological: Yes: Alert, Pre-Existing Deficit Psychiatric: Yes: Alert Labs: Laboratory Results - last 24 hr 04/19/19 04/20/19 04/21/19 13:00 14:30 06:45 Retic Count 2.02 H D Sodium Potassium Chloride Carbon Dioxide Anion Gap BUN Creatinine Est GFR (CKD-EPI)AfAm Est GFR (CKD-EPI)NonAf Random Glucose Calcium Iron 58 TIBC 397 Iron Saturation 15 Unsaturated IBC 339 Ferritin Total Bilirubin AST ALT Alkaline Phosphatase Total Protein Albumin Urine Color Yellow Urine Appearance Clear Urine pH 6.0 Ur Specific [place] 1.020 Urine Protein 1+ H Urine Glucose (UA) Negative Urine Ketones Negative Urine Blood Negative Urine Nitrite Positive H Urine Bilirubin Negative Urine Urobilinogen 0.2 Ur Leukocyte Esterase 2+ H Urine WBC (Auto) 98 Urine RBC (Auto) 2 Urine Casts (Auto) 19 U Epithel Cells (Auto) 2.9 Urine Bacteria (Auto) 44.0 04/21/19 06:45 Retic Count Sodium 141 Potassium 3.8 Chloride 110 H Carbon Dioxide 26 Anion Gap 6 L BUN 19.2 H Creatinine 0.9 Est GFR (CKD-EPI)AfAm 95.15 Est GFR (CKD-EPI)NonAf 82.09 Random Glucose 84 Calcium 9.1 Iron TIBC Iron Saturation Unsaturated IBC Ferritin 185.9 Total Bilirubin 0.5 AST 25 ALT 54 Alkaline Phosphatase 159 H Total Protein 6.9 Albumin 2.6 L Urine Color Urine Appearance Urine pH Ur Specific [place] Urine Protein Urine Glucose (UA) Urine Ketones Urine Blood Urine Nitrite Urine Bilirubin Urine Urobilinogen Ur Leukocyte Esterase Urine WBC (Auto) Urine RBC (Auto) Urine Casts (Auto) U Epithel Cells (Auto) Urine Bacteria (Auto) Problem List - Problems (1) Aspiration into airway Code(s): T17.908A - UNSP FB IN RESP TRACT, PART UNSP CAUSING OTH INJURY, INIT (2) Chronic respiratory insufficiency Code(s): R06.89 - OTHER ABNORMALITIES OF BREATHING (3) Coffee ground emesis Code(s): K92.0 - HEMATEMESIS (4) DVT (deep venous thrombosis) Code(s): I82.409 - ACUTE EMBOLISM AND THOMBOS UNSP DEEP VN UNSP LOWER EXTREMITY (5) Glaucoma Code(s): H40.9 - UNSPECIFIED GLAUCOMA IMP CHRONIC RESPIRATORY FAILURE ? ASPIRATION COFFEE GROUND EMESIS MYASTHENIA GRAVIS HTN HLD S/P TRACH/PEG ANEMIA PLAN VENT SUPPORT ON AC MODE TRACHEAL SUCTIONING INHALED BRONCHODILATORS ABX PER ID MONITOR H+H NORMAL TRANSFUSION THRESHOLD REPEAT CXR DR LIN
--- NOTE | 2019-04-21 11:11 | PN ---
Progress Note, Physician Chief Complaint: Coffee Ground Emesis Pneumonia History of Present Illness: Previous notes and events reviewed awake and alert, non verbal mechanically ventilated NAD no acute events overnight - Current Medication List Current Medications: Active Medications Acetaminophen (Tylenol *Children Solution* -) 320 mg PEG Q6H PRN PRN Reason: FEVER Albuterol/Ipratropium (Duoneb -) 1 amp NEB RQID [facility] Last Admin: 04/21/19 09:27 Dose: 1 amp Brimonidine Tartrate (Alphagan 0.15% -) 1 drop OU BID [facility] Last Admin: 04/20/19 21:55 Dose: 1 drop Fentanyl (Duragesic 50mcg Patch -) 1 patch TD Q72H [facility] Last Admin: 04/20/19 06:07 Dose: Not Given Piperacillin Sod/Tazobactam (Sod 3.375 gm/ Dextrose) 50 mls @ 100 mls/hr IVPB Q8H-IV [facility]; Protocol Last Admin: 04/21/19 01:39 Dose: 100 mls/hr Latanoprost (Xalatan 0.005% Eye Drops -) 1 drop OU HS [facility] Last Admin: 04/20/19 21:55 Dose: 1 drop Metoclopramide HCl (Reglan Injection -) 10 mg IVPUSH Q8H PRN PRN Reason: NAUSEA AND/OR VOMITING Pantoprazole Sodium (Protonix Iv) 40 mg IVPUSH BID [facility] Last Admin: 04/20/19 21:55 Dose: 40 mg Rosuvastatin Calcium (Crestor -) 20 mg PO [facility] Last Admin: 04/20/19 21:55 Dose: 20 mg - Objective Vital Signs: Vital Signs Temperature 98.7 F 04/21/19 06:00 Pulse Rate 103 H 04/21/19 06:00 Respiratory Rate 16 04/21/19 09:44 Blood Pressure 130/80 04/21/19 06:00 O2 Sat by Pulse Oximetry (%) 95 04/20/19 21:00 Constitutional: Yes: No Distress, Calm Eyes: Yes: Conjunctiva Clear HENT: Yes: Atraumatic Cardiovascular: Yes: Regular Rate and Rhythm Respiratory: Yes: Diminished, Mechanically Ventilated Gastrointestinal: Yes: Normal Bowel Sounds, Soft, Other (G tube) Genitourinary: Yes: Incontinence Musculoskeletal: Yes: Muscle Weakness Extremities: Yes: WNL Edema: No Neurological: Yes: Alert, Pre-Existing Deficit Psychiatric: Yes: Alert Labs: CBC, BMP 04/20/19 07:40 04/21/19 06:45 INR, PTT INR 0.97 (0.83-1.09) 04/20/19 07:40 Problem List - Problems (1) Aspiration into airway Assessment/Plan: -Pulm consult -CXR shows increased markings in the right hemithorax suggestive of atelectasis or infiltrate at the right lung base, fluid in the horizontal fissure -bronchodilators -suction as needed -Zosyn -WBC 10.5 Code(s): T17.908A - UNSP FB IN RESP TRACT, PART UNSP CAUSING OTH INJURY, INIT (2) Chronic respiratory insufficiency Assessment/Plan: -Pulm on board -mechanical ventilator -bronchodilators -keep SpO2 >90% Code(s): R06.89 - OTHER ABNORMALITIES OF BREATHING (3) Coffee ground emesis Assessment/Plan: -GI on board -Hg 11.4-->9.3 -Iron panel ordered -monitor Hg daily -transfuse for Hg <8.0 -stool OB neg Code(s): K92.0 - HEMATEMESIS (4) Glaucoma Assessment/Plan: -Alphagan and Latanoprast Code(s): H40.9 - UNSPECIFIED GLAUCOMA (5) Hyperlipidemia Assessment/Plan: -Crestor Code(s): E78.5 - HYPERLIPIDEMIA, UNSPECIFIED (6) Anemia Assessment/Plan: -drop in Hg 11.4-9.3 -serial CBCs -monitor Hg daily -transfuse for Hg <8.0 -iron panel ordered Code(s): D64.9 - ANEMIA, UNSPECIFIED (7) Chronic pain disorder Assessment/Plan: -Fentanyl patch Code(s): G89.4 - CHRONIC PAIN SYNDROME Assessment/Plan see problem list SCDs
[2019-04-21] MEDS: PANTOPRAZOLE SODIUM 40 MG VIAL IVPUSH SCH ×2 (11:16→22:18)
[2019-04-21] MEDS: BRIMONIDINE TARTRATE 0.15% OPHTHALMIC 5 ML BOTTLE OU SCH ×2 (11:17→22:19)
--- NOTE | 2019-04-21 11:20 | PN ---
Progress Note, Physician History of Present Illness: stable no events over night on a/c mode - Current Medication List Current Medications: Active Medications Acetaminophen (Tylenol *Children Solution* -) 320 mg PEG Q6H PRN PRN Reason: FEVER Albuterol/Ipratropium (Duoneb -) 1 amp NEB RQID [facility] Last Admin: 04/21/19 09:27 Dose: 1 amp Brimonidine Tartrate (Alphagan 0.15% -) 1 drop OU BID [facility] Last Admin: 04/21/19 11:17 Dose: 1 drop Fentanyl (Duragesic 50mcg Patch -) 1 patch TD Q72H [facility] Last Admin: 04/20/19 06:07 Dose: Not Given Piperacillin Sod/Tazobactam (Sod 3.375 gm/ Dextrose) 50 mls @ 100 mls/hr IVPB Q8H-IV [facility]; Protocol Last Admin: 04/21/19 11:16 Dose: 100 mls/hr Latanoprost (Xalatan 0.005% Eye Drops -) 1 drop OU HS [facility] Last Admin: 04/20/19 21:55 Dose: 1 drop Metoclopramide HCl (Reglan Injection -) 10 mg IVPUSH Q8H PRN PRN Reason: NAUSEA AND/OR VOMITING Pantoprazole Sodium (Protonix Iv) 40 mg IVPUSH BID [facility] Last Admin: 04/21/19 11:16 Dose: 40 mg Rosuvastatin Calcium (Crestor -) 20 mg PO HS [facility] Last Admin: 04/20/19 21:55 Dose: 20 mg - Objective Vital Signs: Vital Signs Temperature 98.7 F 04/21/19 06:00 Pulse Rate 103 H 04/21/19 06:00 Respiratory Rate 16 04/21/19 09:44 Blood Pressure 130/80 04/21/19 06:00 O2 Sat by Pulse Oximetry (%) 95 04/20/19 21:00 Constitutional: Yes: Other (contracted) HENT: Yes: Atraumatic Neck: Yes: Other (trach in place) Respiratory: Yes: Poor Air Entry, Other Gastrointestinal: Yes: Soft, Hypoactive Bowel Sounds, Other Neurological: Yes: Alert Labs: CBC, BMP 04/20/19 07:40 04/21/19 06:45 INR, PTT INR 0.97 (0.83-1.09) 04/20/19 07:40 Assessment/Plan Problem List - Problems (1) Aspiration into airway Code(s): T17.908A - UNSP FB IN RESP TRACT, PART UNSP CAUSING OTH INJURY, INIT (2) Chronic respiratory insufficiency Code(s): R06.89 - OTHER ABNORMALITIES OF BREATHING (3) Coffee ground emesis Code(s): K92.0 - HEMATEMESIS (4) DVT (deep venous thrombosis) Code(s): I82.409 - ACUTE EMBOLISM AND THOMBOS UNSP DEEP VN UNSP LOWER EXTREMITY (5) Glaucoma Code(s): H40.9 - UNSPECIFIED GLAUCOMA chr resp failure aspiration coffee ground emesis htn trach/peg mg plan continue abx asp precautions
[2019-04-21 14:27] VITALS: BMI 21.3
[2019-04-21] MEDS ORDERED: SODIUM CHLORIDE 1,000 ML IV SCH (20:30)
[2019-04-21] MEDS: ROSUVASTATIN CA 20 MG TABLET (FP) PO SCH (22:18)
[2019-04-21] MEDS: LATANOPROST 0.005% OPHTH SOLN 2.5ML BOTTLE OU SCH (22:19)
[2019-04-22] MEDS ORDERED: PIPERACILLIN/TAZOBACTAM 3.375 GM VIAL IVPB ONE ×2 (01:48→08:37)
[2019-04-22] MEDS ORDERED: DEXTROSE 5%-WATER - 50 ML IVPB ONE ×2 (01:48→08:37)
[2019-04-22] MEDS: PIPERACILLIN/TAZOB 3.375 GM 3.375 GM in DEXTROSE 5%-WATER - 50 ML IVPB SCH (02:02)
[2019-04-22 07:38] LABS: HEMATOCRIT 23.8 % (35.4-49); HEMOGLOBIN 7.9 GM/dL (11.7-16.9); MCH 28.8 pg (25.7-33.7); MCHC 33.2 g/dl (32.0-35.9); MEAN CELL VOLUME 86.6 fl (80-96); MEAN PLT VOLUME 9.8 fl (7.5-11.1); RBC 2.75 M/mm3 (4.00-5.60); RDW 15.9 % (11.9-15.9); WHITE BLOOD COUNT 6.8 K/mm3 (4.0-10.0)
[2019-04-22 07:39] LABS: ALBUMIN 2.6 g/dl (3.4-5.0); BILIRUBIN,TOTAL 0.5 mg/dL (0.2-1); BLOOD UREA NITROGEN 15.5 mg/dL (7-18); CALCIUM 9.4 mg/dL (8.5-10.1); POTASSIUM 3.5 mmol/L (3.5-5.1); TOT PROT 6.9 g/dl (6.4-8.2)
[2019-04-22] MEDS: ALBUTEROL SO4 2.5/IPRATROPIUM 0.5 INH SOL 3 ML VIAL.NEB. NEB SCH ×4 (07:40→20:41)
[2019-04-22 08:06] LABS: SERUM IRON SATURATION 13 % (15-55); TOTAL IRON BINDING CAPACITY 280 ug/dL (250-450)
[2019-04-22 08:09] LABS: PLATELET COUNT 197 K/MM3 (134-434)
--- NOTE | 2019-04-22 09:15 | PN ---
Progress Note, Physician History of Present Illness: patient stable h and h bleeding - Current Medication List Current Medications: Active Medications Acetaminophen (Tylenol *Children Solution* -) 320 mg PEG Q6H PRN PRN Reason: FEVER Albuterol/Ipratropium (Duoneb -) 1 amp NEB RQID [facility] Last Admin: 04/21/19 20:50 Dose: 1 amp Brimonidine Tartrate (Alphagan 0.15% -) 1 drop OU BID [facility] Last Admin: 04/21/19 22:19 Dose: 1 drop Fentanyl (Duragesic 50mcg Patch -) 1 patch TD Q72H [facility] Last Admin: 04/20/19 06:07 Dose: Not Given Sodium Chloride (Normal Saline -) 1,000 mls @ 42 mls/hr IV ASDIR [facility] Last Admin: 04/21/19 22:18 Dose: 42 mls/hr Meropenem 1 gm/ Dextrose 100 mls @ 200 mls/hr IVPB Q8H-IV [facility] Latanoprost (Xalatan 0.005% Eye Drops -) 1 drop OU [facility] Last Admin: 04/21/19 22:19 Dose: 1 drop Metoclopramide HCl (Reglan Injection -) 10 mg IVPUSH Q8H PRN PRN Reason: NAUSEA AND/OR VOMITING Pantoprazole Sodium (Protonix Iv) 40 mg IVPUSH BID [facility] Last Admin: 04/21/19 22:18 Dose: 40 mg Rosuvastatin Calcium (Crestor -) 20 mg PO HS [facility] Last Admin: 04/21/19 22:18 Dose: 20 mg - Objective Vital Signs: Vital Signs Temperature 98.2 F 04/22/19 07:07 Pulse Rate 59 L 04/22/19 07:07 Respiratory Rate 16 04/22/19 07:14 Blood Pressure 126/64 04/22/19 07:07 O2 Sat by Pulse Oximetry (%) 100 04/21/19 21:00 Constitutional: Yes: No Distress, Calm Cardiovascular: Yes: Regular Rate and Rhythm Respiratory: Yes: Other (trach,vent) Musculoskeletal: Yes: Other Extremities: Yes: Other Neurological: Yes: Alert, Other Psychiatric: Yes: Other Labs: CBC, BMP 04/22/19 06:40 04/22/19 06:40 INR, PTT INR 0.97 (0.83-1.09) 04/20/19 07:40 Assessment/Plan Problem List - Problems (1) Aspiration into airway Code(s): T17.908A - UNSP FB IN RESP TRACT, PART UNSP CAUSING OTH INJURY, INIT (2) Chronic respiratory insufficiency Code(s): R06.89 - OTHER ABNORMALITIES OF BREATHING (3) Coffee ground emesis Code(s): K92.0 - HEMATEMESIS (4) DVT (deep venous thrombosis) Code(s): I82.409 - ACUTE EMBOLISM AND THOMBOS UNSP DEEP VN UNSP LOWER EXTREMITY (5) Glaucoma Code(s): H40.9 - UNSPECIFIED GLAUCOMA 6 uti patient now esbl plan will change abx to meropenam close watch nutrition rest as per the team
[2019-04-22] MEDS ORDERED: DEXTROSE 5%-WATER 100 ML IVPB ONE ×3 (09:22→22:28)
[2019-04-22] MEDS ORDERED: MEROPENEM 1 GM VIAL (RESTRICTED TO ID) IVPB ONE ×3 (09:22→22:28)
[2019-04-22] MEDS: MEROPENEM 1 GM in DEXTROSE 5%-WATER 100 ML IVPB SCH ×2 (09:43→17:48)
[2019-04-22] MEDS: PANTOPRAZOLE SODIUM 40 MG VIAL IVPUSH SCH ×2 (09:43→22:11)
[2019-04-22] MEDS: BRIMONIDINE TARTRATE 0.15% OPHTHALMIC 5 ML BOTTLE OU SCH ×2 (09:45→22:11)
--- NOTE | 2019-04-22 13:34 | PN.GI ---
GI Progress Note Subjective: GI NOte: Hb has dropped to 7.9. NO melena or vomiting. I was able to reach the son Kvng who tells me that his father had an ulcer dx'd at [facility] about 1 1/2 years ago. He had a 2nd EGD that found that it had healed. he also had a colonoscopy a t that time which revealed that the ulcer had healed. I explained that ths Hb has dropped and the ulcer may have recurred and advised an EGD. I explained that there is a risk of perforation and hemorrhage associated with EGD and that it occurs ion about 1:10,000 cases. He has granted an informed consent. I will do the EGD LIZY. - Objective Vital Signs: Vital Signs Temperature 98.2 F 04/22/19 07:07 Pulse Rate 89 04/22/19 10:30 Respiratory Rate 16 04/22/19 10:29 Blood Pressure 126/64 04/22/19 07:07 O2 Sat by Pulse Oximetry (%) 99 04/22/19 10:30 Laboratory Tests 04/19/19 04/20/19 04/21/19 13:00 07:40 06:45 Hgb 11.4 L 9.3 L Retic Count 2.02 H D Iron TIBC Iron Saturation Unsaturated IBC Ferritin 04/21/19 04/21/19 04/22/19 06:45 06:45 06:40 Hgb 7.9 L Retic Count Iron 37 L TIBC 280 Iron Saturation 13 L Unsaturated IBC 243 Ferritin 185.9 Constitutional: Calm ...Auscultate: Yes: Normoactive Bowel Sounds ...Palpate: Yes: Soft ...Percussion: Yes: Other (nontender) Labs: CBC, BMP 04/22/19 06:40 04/22/19 06:40 INR, PTT INR 0.97 (0.83-1.09) 04/20/19 07:40 Assessment/Plan Impression: - Nonsustained coffee grd emesis now with Hg drop with h/o previous ulcer mandates an EGD Plan: -- EGD today -- Continue PPI Problem List - Problems (1) Coffee ground emesis Code(s): K92.0 - HEMATEMESIS (2) Anemia Code(s): D64.9 - ANEMIA, UNSPECIFIED (3) Myasthenia gravis Code(s): G70.00 - MYASTHENIA GRAVIS WITHOUT (ACUTE) EXACERBATION (4) Tracheostomy in place Code(s): Z93.0 - TRACHEOSTOMY STATUS (5) Gastrostomy in place Code(s): Z93.1 - GASTROSTOMY STATUS (6) DVT (deep venous thrombosis) Code(s): I82.409 - ACUTE EMBOLISM AND THOMBOS UNSP DEEP VN UNSP LOWER EXTREMITY
--- NOTE | 2019-04-22 14:50 | PN ---
Progress Note (short form) - Note Progress Note: GI Procedure NOte: Please see EGD report. NO bleeding found. 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 I spoke with the son to inform him of the findings and advised a colonoscopy. I again discussed the risks of perforation and hemorrhage and he gave a verbal consent and will come in tomorrow to sign it. I have scheduled it for 04/25/19. Problem List - Problems (1) Coffee ground emesis Code(s): K92.0 - HEMATEMESIS (2) Anemia Code(s): D64.9 - ANEMIA, UNSPECIFIED (3) Myasthenia gravis Code(s): G70.00 - MYASTHENIA GRAVIS WITHOUT (ACUTE) EXACERBATION (4) Tracheostomy in place Code(s): Z93.0 - TRACHEOSTOMY STATUS (5) Gastrostomy in place Code(s): Z93.1 - GASTROSTOMY STATUS (6) DVT (deep venous thrombosis) Code(s): I82.409 - ACUTE EMBOLISM AND THOMBOS UNSP DEEP VN UNSP LOWER EXTREMITY
[2019-04-22 15:13] LABS: TRANSGLUTAMINASE IGA < 2 U/mL (0-3); TRANSGLUTAMINASE IGG 3 U/mL (0-5)
[2019-04-22] MEDS ORDERED: BISACODYL 5 MG TABLET.DR (FP) PO ONE (15:24)
--- NOTE | 2019-04-22 15:25 | PN ---
Progress Note, Physician History of Present Illness: PULMONARY awake,no distress on vent support ac mode,pt s/p egd trolerated procedure well, findings noted - Current Medication List Current Medications: Active Medications Acetaminophen (Tylenol *Children Solution* -) 320 mg PEG Q6H PRN PRN Reason: FEVER Albuterol/Ipratropium (Duoneb -) 1 amp NEB RQID [facility] Last Admin: 04/22/19 11:00 Dose: 1 amp Bisacodyl (Dulcolax -) 20 mg PO ONCE ONE Stop: 04/22/19 15:25 Brimonidine Tartrate (Alphagan 0.15% -) 1 drop OU BID [facility] Last Admin: 04/22/19 09:45 Dose: 1 drop Fentanyl (Duragesic 50mcg Patch -) 1 patch TD Q72H [facility] Last Admin: 04/20/19 06:07 Dose: Not Given Sodium Chloride (Normal Saline -) 1,000 mls @ 42 mls/hr IV ASDIR [facility] Last Admin: 04/21/19 22:18 Dose: 42 mls/hr Meropenem 1 gm/ Dextrose 100 mls @ 200 mls/hr IVPB Q8H-IV [facility] Last Admin: 04/22/19 09:43 Dose: 200 mls/hr Latanoprost (Xalatan 0.005% Eye Drops -) 1 drop OU HS [facility] Last Admin: 04/21/19 22:19 Dose: 1 drop Metoclopramide HCl (Reglan Injection -) 10 mg IVPUSH Q8H PRN PRN Reason: NAUSEA AND/OR VOMITING Pantoprazole Sodium (Protonix Iv) 40 mg IVPUSH BID [facility] Last Admin: 04/22/19 09:43 Dose: 40 mg Polyethylene Glycol/Electrolytes (Golytely Solution -) 4,000 ml PO ONCE ONE Stop: 04/24/19 09:01 Rosuvastatin Calcium (Crestor -) 20 mg PO HS [facility] Last Admin: 04/21/19 22:18 Dose: 20 mg - Objective Vital Signs: Vital Signs Temperature 98.8 F 04/22/19 09:40 Pulse Rate 89 04/22/19 10:30 Respiratory Rate 13 04/22/19 15:03 Blood Pressure 145/80 04/22/19 09:40 O2 Sat by Pulse Oximetry (%) 99 06/28/19 10:30 Constitutional: Yes: Calm, Thin Eyes: Yes: WNL HENT: Yes: WNL Neck: Yes: Supple (trach) Cardiovascular: Yes: Regular Rate and Rhythm, S1, S2 Respiratory: Yes: Rhonchi (few scattered rhonchi) Gastrointestinal: Yes: Normal Bowel Sounds, Soft Extremities: Yes: WNL Edema: No Labs: CBC, BMP 04/22/19 06:40 04/22/19 06:40 INR, PTT INR 0.97 (0.83-1.09) 04/20/19 07:40 Problem List - Problems (1) Aspiration into airway Code(s): T17.908A - UNSP FB IN RESP TRACT, PART UNSP CAUSING OTH INJURY, INIT (2) Chronic respiratory insufficiency Code(s): R06.89 - OTHER ABNORMALITIES OF BREATHING (3) Coffee ground emesis Code(s): K92.0 - HEMATEMESIS (4) DVT (deep venous thrombosis) Code(s): I82.409 - ACUTE EMBOLISM AND THOMBOS UNSP DEEP VN UNSP LOWER EXTREMITY (5) Glaucoma Code(s): H40.9 - UNSPECIFIED GLAUCOMA Assessment/Plan Problem List - Problems (1) Aspiration into airway Code(s): T17.908A - UNSP FB IN RESP TRACT, PART UNSP CAUSING OTH INJURY, INIT (2) Chronic respiratory insufficiency Code(s): R06.89 - OTHER ABNORMALITIES OF BREATHING (3) Coffee ground emesis Code(s): K92.0 - HEMATEMESIS (4) DVT (deep venous thrombosis) Code(s): I82.409 - ACUTE EMBOLISM AND THOMBOS UNSP DEEP VN UNSP LOWER EXTREMITY (5) Glaucoma Code(s): H40.9 - UNSPECIFIED GLAUCOMA IMP CHRONIC RESPIRATORY FAILURE ? ASPIRATION COFFEE GROUND EMESIS MYASTHENIA GRAVIS HTN HLD S/P TRACH/PEG ANEMIA PLAN VENT SUPPORT ON AC MODE TRACHEAL SUCTIONING INHALED BRONCHODILATORS ABX PER ID MONITOR H+H NORMAL TRANSFUSION THRESHOLD COLONOSCOPY ON THURSDAY DR SETH
[2019-04-22] MEDS: DEXTROSE 5%-0.45% SALINE 1,000 ML IV SCH (17:48)
--- NOTE | 2019-04-22 18:12 | PN ---
Progress Note, Physician Chief Complaint: Coffee ground emesis History of Present Illness: Saw pt earlier in AM NAD mechanical vent - Current Medication List Current Medications: Active Medications Acetaminophen (Tylenol *Children Solution* -) 320 mg PEG Q6H PRN PRN Reason: FEVER Albuterol/Ipratropium (Duoneb -) 1 amp NEB RQID [facility] Last Admin: 04/22/19 15:42 Dose: 1 amp Bisacodyl (Dulcolax Suppository -) 10 mg RC ONCE ONE Stop: 04/24/19 18:01 Brimonidine Tartrate (Alphagan 0.15% -) 1 drop OU BID [facility] Last Admin: 04/22/19 09:45 Dose: 1 drop Fentanyl (Duragesic 50mcg Patch -) 1 patch TD Q72H [facility] Last Admin: 04/20/19 06:07 Dose: Not Given Meropenem 1 gm/ Dextrose 100 mls @ 200 mls/hr IVPB Q8H-IV [facility] Last Admin: 04/22/19 17:48 Dose: 200 mls/hr Dextrose/Sodium Chloride (D5-1/2ns -) 1,000 mls @ 75 mls/hr IV ASDIR [facility] Last Admin: 04/22/19 17:48 Dose: 75 mls/hr Latanoprost (Xalatan 0.005% Eye Drops -) 1 drop OU HS [facility] Last Admin: 04/21/19 22:19 Dose: 1 drop Pantoprazole Sodium (Protonix Iv) 40 mg IVPUSH BID [facility] Last Admin: 04/22/19 09:43 Dose: 40 mg Polyethylene Glycol (Miralax (For Daily Use) -) 17 gm PEG TID [facility] Polyethylene Glycol/Electrolytes (Golytely Solution -) 4,000 ml GT ONCE ONE Stop: 04/24/19 09:01 Rosuvastatin Calcium (Crestor -) 20 mg PO HS [facility] Last Admin: 04/21/19 22:18 Dose: 20 mg - Objective Vital Signs: Vital Signs Temperature 98.8 F 04/22/19 09:40 Pulse Rate 89 04/22/19 10:30 Respiratory Rate 13 04/22/19 15:03 Blood Pressure 145/80 04/22/19 09:40 O2 Sat by Pulse Oximetry (%) 99 04/22/19 10:30 Constitutional: Yes: No Distress, Calm, Cachectic Cardiovascular: Yes: Regular Rate and Rhythm Respiratory: Yes: Mechanically Ventilated, Rhonchi (diffuse) Genitourinary: Yes: Incontinence Musculoskeletal: Yes: Other (generalized atrophy) Edema: Yes Edema: LLE: Trace, RLE: Trace Peripheral Pulses WNL: Yes Neurological: Yes: Pre-Existing Deficit Labs: CBC, BMP 04/22/19 06:40 04/22/19 06:40 INR, PTT INR 0.97 (0.83-1.09) 04/20/19 07:40 Assessment/Plan (1) Aspiration into airway Assessment/Plan: -Pulm consult -CXR shows increased markings in the right hemithorax suggestive of atelectasis or infiltrate at the right lung base, fluid in the horizontal fissure -bronchodilators -suction as needed -Zosyn -leukocytosis resolved Code(s): T17.908A - UNSP FB IN RESP TRACT, PART UNSP CAUSING OTH INJURY, INIT (2) Chronic respiratory insufficiency Assessment/Plan: -Pulm on board -mechanical ventilator -bronchodilators -keep SpO2 >90% Code(s): R06.89 - OTHER ABNORMALITIES OF BREATHING (3) Coffee ground emesis Assessment/Plan: -GI on board -gradual drop in H/H -EGD today -Iron panel low% -Start Ferrous sulfate via GT -monitor Hg daily -transfuse for Hg <7.0 -stool OB neg Code(s): K92.0 - HEMATEMESIS (4) Glaucoma Assessment/Plan: -Alphagan and Latanoprast Code(s): H40.9 - UNSPECIFIED GLAUCOMA (5) Hyperlipidemia Assessment/Plan: -Crestor Code(s): E78.5 - HYPERLIPIDEMIA, UNSPECIFIED (6) Anemia Assessment/Plan: -drop in H/H -EGD today- no bleeding -Will need colonoscopy on 04/25/19 -PPI BID -serial CBCs -monitor Hg daily -transfuse for Hg <7.0 to avoid fluid overload -Start Ferrous sulfate Code(s): D64.9 - ANEMIA, UNSPECIFIED (7) Chronic pain disorder Assessment/Plan: -Fentanyl patch Code(s): G89.4 - CHRONIC PAIN SYNDROME
[2019-04-22] MEDS: ROSUVASTATIN CA 20 MG TABLET (FP) PO SCH (22:07)
[2019-04-22] MEDS: fentaNYL 50mcg/hr PATCH.TD72 TD SCH (22:09)
[2019-04-22] MEDS: POLYETHYLENE GLYCOL 3350 119 GM BTL PEG SCH (22:11)
[2019-04-22] MEDS: LATANOPROST 0.005% OPHTH SOLN 2.5ML BOTTLE OU SCH (22:11)
[2019-04-22] MEDS ORDERED: PT OWN MED DRAWER 7, Y5N ONE (22:26)
[2019-04-23] MEDS: MEROPENEM 1 GM in DEXTROSE 5%-WATER 100 ML IVPB SCH ×3 (01:09→17:34)
[2019-04-23] MEDS: DEXTROSE 5%-0.45% SALINE 1,000 ML IV SCH ×2 (05:22→15:35)
[2019-04-23] MEDS: POLYETHYLENE GLYCOL 3350 119 GM BTL PEG SCH ×2 (05:23→15:35)
[2019-04-23 07:52] LABS: BASO % 0.5 % (0-2.0); EOS % 6.5 % (0-4.5); HEMATOCRIT 23.5 % (35.4-49); HEMOGLOBIN 7.8 GM/dL (11.7-16.9); LYMPH % 21.3 % (8-40); MCH 28.9 pg (25.7-33.7); MCHC 33.2 g/dl (32.0-35.9); MEAN CELL VOLUME 86.9 fl (80-96); MEAN PLT VOLUME 9.4 fl (7.5-11.1); MONO % 9.9 % (3.8-10.2); NEUT % 61.8 % (42.8-82.8); RBC 2.71 M/mm3 (4.00-5.60); WHITE BLOOD COUNT 4.8 K/mm3 (4.0-10.0)
[2019-04-23] MEDS: ALBUTEROL SO4 2.5/IPRATROPIUM 0.5 INH SOL 3 ML VIAL.NEB. NEB SCH ×4 (08:00→21:23)
[2019-04-23 08:17] LABS: ALBUMIN 2.5 g/dl (3.4-5.0); BILIRUBIN,TOTAL 0.4 mg/dL (0.2-1); BLOOD UREA NITROGEN 12.3 mg/dL (7-18); CALCIUM 9.1 mg/dL (8.5-10.1); CREATININE 0.8 mg/dL (0.55-1.3); POTASSIUM 3.3 mmol/L (3.5-5.1); TOT PROT 6.6 g/dl (6.4-8.2)
[2019-04-23] MEDS ORDERED: MEROPENEM 1 GM VIAL (RESTRICTED TO ID) IVPB ONE ×2 (08:49→17:14)
[2019-04-23] MEDS ORDERED: DEXTROSE 5%-WATER 100 ML IVPB ONE ×2 (08:50→17:14)
[2019-04-23] MEDS ORDERED: PT OWN MED DRAWER 7, Y5N ONE (08:50)
[2019-04-23 09:07] LABS: PLATELET COUNT 191 K/MM3 (134-434)
[2019-04-23] MEDS: FERROUS SO4 300 MG/5 ML ORAL SOLN UNIT DOSE CUPS GT SCH (09:43)
[2019-04-23] MEDS: PANTOPRAZOLE SODIUM 40 MG VIAL IVPUSH SCH (09:43)
[2019-04-23] MEDS: BRIMONIDINE TARTRATE 0.15% OPHTHALMIC 5 ML BOTTLE OU SCH (09:45)
[2019-04-23] MEDS ORDERED: FUROSEMIDE 40 MG/4 ML INJECTABLE VIAL IVPUSH ONE ×2 (09:51→16:00)
--- NOTE | 2019-04-23 09:52 | PN ---
Progress Note, Physician - Current Medication List Current Medications: Active Medications Acetaminophen (Tylenol *Children Solution* -) 320 mg PEG Q6H PRN PRN Reason: FEVER Albuterol/Ipratropium (Duoneb -) 1 amp NEB RQID [facility] Last Admin: 04/23/19 08:00 Dose: 1 amp Bisacodyl (Dulcolax Suppository -) 10 mg RC ONCE ONE Stop: 04/24/19 18:01 Brimonidine Tartrate (Alphagan 0.15% -) 1 drop OU BID [facility] Last Admin: 04/23/19 09:45 Dose: 1 drop Fentanyl (Duragesic 50mcg Patch -) 1 patch TD Q72H [facility] Last Admin: 04/22/19 22:09 Dose: 1 patch Ferrous Sulfate (Feosol) 300 mg GT DAILY [facility] Last Admin: 04/23/19 09:43 Dose: 300 mg Meropenem 1 gm/ Dextrose 100 mls @ 200 mls/hr IVPB Q8H-IV [facility] Last Admin: 04/23/19 09:42 Dose: 200 mls/hr Dextrose/Sodium Chloride (D5-1/2ns -) 1,000 mls @ 75 mls/hr IV ASDIR [facility] Last Admin: 04/23/19 05:22 Dose: 75 mls/hr Latanoprost (Xalatan 0.005% Eye Drops -) 1 drop OU HS [facility] Last Admin: 04/22/19 22:11 Dose: 1 drop Pantoprazole Sodium (Protonix Iv) 40 mg IVPUSH BID [facility] Last Admin: 04/23/19 09:43 Dose: 40 mg Polyethylene Glycol (Miralax (For Daily Use) -) 17 gm PEG TID [facility] Last Admin: 04/23/19 05:23 Dose: 17 gm Polyethylene Glycol/Electrolytes (Golytely Solution -) 4,000 ml GT ONCE ONE Stop: 04/24/19 09:01 Rosuvastatin Calcium (Crestor -) 20 mg PO HS [facility] Last Admin: 04/22/19 22:07 Dose: 20 mg - Objective Vital Signs: Vital Signs Temperature 98.0 F 04/23/19 09:39 Pulse Rate 82 04/23/19 09:39 Respiratory Rate 14 04/23/19 09:39 Blood Pressure 135/70 04/23/19 09:39 O2 Sat by Pulse Oximetry (%) 99 04/22/19 10:30 Cardiovascular: Yes: S1, S2 Respiratory: Yes: Mechanically Ventilated Gastrointestinal: Yes: Normal Bowel Sounds, Soft Labs: CBC, BMP 04/23/19 07:26 04/23/19 07:26 INR, PTT INR 0.97 (0.83-1.09) 04/20/19 07:40 Assessment/Plan (1) Aspiration into airway Assessment/Plan: -Pulm consult -CXR shows increased markings in the right hemithorax suggestive of atelectasis or infiltrate at the right lung base, fluid in the horizontal fissure -bronchodilators -suction as needed -Zosyn -leukocytosis resolved Code(s): T17.908A - UNSP FB IN RESP TRACT, PART UNSP CAUSING OTH INJURY, INIT (2) Chronic respiratory insufficiency Assessment/Plan: -Pulm on board -mechanical ventilator -bronchodilators -keep SpO2 >90% Code(s): R06.89 - OTHER ABNORMALITIES OF BREATHING (3) Coffee ground emesis Assessment/Plan: -GI on board -gradual drop in H/H -EGD noted -Iron panel low% -Start Ferrous sulfate via GT -monitor Hg daily -transfuse -stool OB neg Code(s): K92.0 - HEMATEMESIS (4) Glaucoma Assessment/Plan: -Alphagan and Latanoprast Code(s): H40.9 - UNSPECIFIED GLAUCOMA (5) Hyperlipidemia Assessment/Plan: -Crestor Code(s): E78.5 - HYPERLIPIDEMIA, UNSPECIFIED (6) Anemia Assessment/Plan: -drop in H/H -EGD today- no bleeding -Will need colonoscopy on 04/25/19 -PPI BID -serial CBCs -monitor Hg daily -transfuse prbc -Start Ferrous sulfate Code(s): D64.9 - ANEMIA, UNSPECIFIED (7) Chronic pain disorder Assessment/Plan: -Fentanyl patch Code(s): G89.4 - CHRONIC PAIN SYNDROME
--- NOTE | 2019-04-23 11:02 | PN ---
Progress Note, Physician History of Present Illness: pulmonary comfortable,no distress on vent support ac mode - Current Medication List Current Medications: Active Medications Acetaminophen (Tylenol *Children Solution* -) 320 mg PEG Q6H PRN PRN Reason: FEVER Albuterol/Ipratropium (Duoneb -) 1 amp NEB RQID [facility] Last Admin: 04/23/19 08:00 Dose: 1 amp Bisacodyl (Dulcolax Suppository -) 10 mg RC ONCE ONE Stop: 04/24/19 18:01 Brimonidine Tartrate (Alphagan 0.15% -) 1 drop OU BID [facility] Last Admin: 04/23/19 09:45 Dose: 1 drop Fentanyl (Duragesic 50mcg Patch -) 1 patch TD Q72H [facility] Last Admin: 04/22/19 22:09 Dose: 1 patch Ferrous Sulfate (Feosol) 300 mg GT DAILY [facility] Last Admin: 04/23/19 09:43 Dose: 300 mg Furosemide (Lasix Injection -) 20 mg IVPUSH ONCE ONE Stop: 04/23/19 09:52 Meropenem 1 gm/ Dextrose 100 mls @ 200 mls/hr IVPB Q8H-IV [facility] Last Admin: 04/23/19 09:42 Dose: 200 mls/hr Dextrose/Sodium Chloride (D5-1/2ns -) 1,000 mls @ 75 mls/hr IV ASDIR [facility] Last Admin: 04/23/19 05:22 Dose: 75 mls/hr Latanoprost (Xalatan 0.005% Eye Drops -) 1 drop OU HS [facility] Last Admin: 04/22/19 22:11 Dose: 1 drop Pantoprazole Sodium (Protonix Iv) 40 mg IVPUSH BID [facility] Last Admin: 04/23/19 09:43 Dose: 40 mg Polyethylene Glycol (Miralax (For Daily Use) -) 17 gm PEG TID [facility] Last Admin: 04/23/19 05:23 Dose: 17 gm Polyethylene Glycol/Electrolytes (Golytely Solution -) 4,000 ml GT ONCE ONE Stop: 04/24/19 09:01 Rosuvastatin Calcium (Crestor -) 20 mg PO HS [facility] Last Admin: 04/22/19 22:07 Dose: 20 mg - Objective Vital Signs: Vital Signs Temperature 98.0 F 04/23/19 09:39 Pulse Rate 82 04/23/19 09:39 Respiratory Rate 14 04/23/19 09:39 Blood Pressure 135/70 04/23/19 09:39 O2 Sat by Pulse Oximetry (%) 99 04/23/19 10:00 Constitutional: Yes: Calm, Thin Eyes: Yes: WNL HENT: Yes: WNL Neck: Yes: Supple (trach) Cardiovascular: Yes: Regular Rate and Rhythm, S1, S2 Respiratory: Yes: Rhonchi (few rhonchi) Gastrointestinal: Yes: Normal Bowel Sounds, Soft Extremities: Yes: WNL Edema: No Labs: CBC, BMP 04/23/19 07:26 04/23/19 07:26 Problem List - Problems (1) Aspiration into airway Code(s): T17.908A - UNSP FB IN RESP TRACT, PART UNSP CAUSING OTH INJURY, INIT (2) Chronic respiratory insufficiency Code(s): R06.89 - OTHER ABNORMALITIES OF BREATHING (3) Coffee ground emesis Code(s): K92.0 - HEMATEMESIS (4) DVT (deep venous thrombosis) Code(s): I82.409 - ACUTE EMBOLISM AND THOMBOS UNSP DEEP VN UNSP LOWER EXTREMITY (5) Glaucoma Code(s): H40.9 - UNSPECIFIED GLAUCOMA Assessment/Plan Problem List - Problems (1) Aspiration into airway Code(s): T17.908A - UNSP FB IN RESP TRACT, PART UNSP CAUSING OTH INJURY, INIT (2) Chronic respiratory insufficiency Code(s): R06.89 - OTHER ABNORMALITIES OF BREATHING (3) Coffee ground emesis Code(s): K92.0 - HEMATEMESIS (4) DVT (deep venous thrombosis) Code(s): I82.409 - ACUTE EMBOLISM AND THOMBOS UNSP DEEP VN UNSP LOWER EXTREMITY (5) Glaucoma Code(s): H40.9 - UNSPECIFIED GLAUCOMA IMP CHRONIC RESPIRATORY FAILURE ? ASPIRATION COFFEE GROUND EMESIS MYASTHENIA GRAVIS HTN HLD S/P TRACH/PEG ANEMIA PLAN VENT SUPPORT ON AC MODE TRACHEAL SUCTIONING INHALED BRONCHODILATORS ABX PER ID MONITOR H+H NORMAL TRANSFUSION THRESHOLD COLONOSCOPY ON THURSDAY DR SETH
--- NOTE | 2019-04-23 13:23 | PN ---
Progress Note, Physician - Current Medication List Current Medications: Active Medications Acetaminophen (Tylenol *Children Solution* -) 320 mg PEG Q6H PRN PRN Reason: FEVER Albuterol/Ipratropium (Duoneb -) 1 amp NEB RQID [facility] Last Admin: 04/23/19 12:00 Dose: 1 amp Bisacodyl (Dulcolax Suppository -) 10 mg RC ONCE ONE Stop: 04/24/19 18:01 Brimonidine Tartrate (Alphagan 0.15% -) 1 drop OU BID [facility] Last Admin: 04/23/19 09:45 Dose: 1 drop Fentanyl (Duragesic 50mcg Patch -) 1 patch TD Q72H [facility] Last Admin: 04/22/19 22:09 Dose: 1 patch Ferrous Sulfate (Feosol) 300 mg GT DAILY [facility] Last Admin: 04/23/19 09:43 Dose: 300 mg Meropenem 1 gm/ Dextrose 100 mls @ 200 mls/hr IVPB Q8H-IV [facility] Last Admin: 04/23/19 09:42 Dose: 200 mls/hr Dextrose/Sodium Chloride (D5-1/2ns -) 1,000 mls @ 75 mls/hr IV ASDIR [facility] Last Admin: 04/23/19 05:22 Dose: 75 mls/hr Latanoprost (Xalatan 0.005% Eye Drops -) 1 drop OU HS [facility] Last Admin: 04/22/19 22:11 Dose: 1 drop Pantoprazole Sodium (Protonix Iv) 40 mg IVPUSH BID [facility] Last Admin: 04/23/19 09:43 Dose: 40 mg Polyethylene Glycol (Miralax (For Daily Use) -) 17 gm PEG TID [facility] Last Admin: 04/23/19 05:23 Dose: 17 gm Polyethylene Glycol/Electrolytes (Golytely Solution -) 4,000 ml GT ONCE ONE Stop: 04/24/19 09:01 Rosuvastatin Calcium (Crestor -) 20 mg PO HS [facility] Last Admin: 04/22/19 22:07 Dose: 20 mg - Objective Vital Signs: Vital Signs Temperature 98.8 F 04/23/19 12:15 Pulse Rate 98 H 04/23/19 12:15 Respiratory Rate 18 04/23/19 12:52 Blood Pressure 104/70 04/23/19 12:15 O2 Sat by Pulse Oximetry (%) 99 04/23/19 10:00 Labs: CBC, BMP 04/23/19 07:26 04/23/19 07:26 INR, PTT INR 0.97 (0.83-1.09) 04/20/19 07:40
[2019-04-24] MEDS: PANTOPRAZOLE SODIUM 40 MG VIAL IVPUSH SCH ×3 (00:11→22:11)
[2019-04-24] MEDS: LATANOPROST 0.005% OPHTH SOLN 2.5ML BOTTLE OU SCH ×2 (00:12→22:10)
[2019-04-24] MEDS: BRIMONIDINE TARTRATE 0.15% OPHTHALMIC 5 ML BOTTLE OU SCH ×3 (00:12→22:11)
[2019-04-24] MEDS: ROSUVASTATIN CA 20 MG TABLET (FP) PO SCH ×2 (00:12→22:11)
[2019-04-24] MEDS: POLYETHYLENE GLYCOL 3350 119 GM BTL PEG SCH ×4 (00:13→22:09)
[2019-04-24] MEDS ORDERED: MEROPENEM 1 GM VIAL (RESTRICTED TO ID) IVPB ONE ×3 (02:45→16:29)
[2019-04-24] MEDS ORDERED: DEXTROSE 5%-WATER 100 ML IVPB ONE ×3 (02:45→16:29)
[2019-04-24] MEDS: DEXTROSE 5%-0.45% SALINE 1,000 ML IV SCH ×3 (02:50→22:28)
[2019-04-24] MEDS: MEROPENEM 1 GM in DEXTROSE 5%-WATER 100 ML IVPB SCH ×3 (02:50→18:33)
[2019-04-24] MEDS: ALBUTEROL SO4 2.5/IPRATROPIUM 0.5 INH SOL 3 ML VIAL.NEB. NEB SCH ×4 (07:23→19:54)
[2019-04-24 07:31] LABS: BASO % 0.3 % (0-2.0); EOS % 4.6 % (0-4.5); HEMATOCRIT 28.4 % (35.4-49); HEMOGLOBIN 9.7 GM/dL (11.7-16.9); LYMPH % 18.9 % (8-40); MCH 28.6 pg (25.7-33.7); MCHC 34.2 g/dl (32.0-35.9); MEAN CELL VOLUME 83.7 fl (80-96); MEAN PLT VOLUME 9.2 fl (7.5-11.1); MONO % 6.6 % (3.8-10.2); NEUT % 69.6 % (42.8-82.8); RBC 3.39 M/mm3 (4.00-5.60); RDW 17.5 % (11.9-15.9); WHITE BLOOD COUNT 7.1 K/mm3 (4.0-10.0)
[2019-04-24 08:04] LABS: ALBUMIN 2.6 g/dl (3.4-5.0); BILIRUBIN,TOTAL 0.4 mg/dL (0.2-1); CALCIUM 9.1 mg/dL (8.5-10.1); CREATININE 0.7 mg/dL (0.55-1.3); POTASSIUM 3.3 mmol/L (3.5-5.1); TOT PROT 6.8 g/dl (6.4-8.2)
[2019-04-24 08:41] LABS: PLATELET COUNT 198 K/MM3 (134-434)
[2019-04-24] MEDS ORDERED: PEG 3350/NA SULF BICARB CL/KCL 4000 ML SOLN.RECON GT ONE (09:00)
[2019-04-24] MEDS ORDERED: PEG 3350/NA SULF BICARB CL/KCL 4000 ML SOLN.RECON PO ONE (09:00)
[2019-04-24] MEDS ORDERED: PT OWN MED DRAWER 7, Y5N ONE (09:21)
[2019-04-24] MEDS: FERROUS SO4 300 MG/5 ML ORAL SOLN UNIT DOSE CUPS GT SCH (09:27)
--- NOTE | 2019-04-24 10:49 | PN ---
Progress Note, Physician History of Present Illness: pulmonary awake,alert,comfortable on vent support ac mode - Current Medication List Current Medications: Active Medications Acetaminophen (Tylenol *Children Solution* -) 320 mg PEG Q6H PRN PRN Reason: FEVER Albuterol/Ipratropium (Duoneb -) 1 amp NEB RQID [facility] Last Admin: 04/24/19 07:23 Dose: 1 amp Bisacodyl (Dulcolax Suppository -) 10 mg RC ONCE ONE Stop: 04/24/19 18:01 Brimonidine Tartrate (Alphagan 0.15% -) 1 drop OU BID [facility] Last Admin: 04/24/19 09:29 Dose: 1 drop Fentanyl (Duragesic 50mcg Patch -) 1 patch TD Q72H [facility] Last Admin: 04/22/19 22:09 Dose: 1 patch Ferrous Sulfate (Feosol) 300 mg GT DAILY [facility] Last Admin: 04/24/19 09:27 Dose: 300 mg Meropenem 1 gm/ Dextrose 100 mls @ 200 mls/hr IVPB Q8H-IV [facility] Last Admin: 04/24/19 09:27 Dose: 200 mls/hr Dextrose/Sodium Chloride (D5-1/2ns -) 1,000 mls @ 75 mls/hr IV ASDIR [facility] Last Admin: 04/24/19 02:50 Dose: 75 mls/hr Latanoprost (Xalatan 0.005% Eye Drops -) 1 drop OU HS [facility] Last Admin: 04/24/19 00:12 Dose: 1 drop Pantoprazole Sodium (Protonix Iv) 40 mg IVPUSH BID [facility] Last Admin: 04/24/19 09:27 Dose: 40 mg Polyethylene Glycol (Miralax (For Daily Use) -) 17 gm PEG TID [facility] Last Admin: 04/24/19 05:51 Dose: 17 gm Rosuvastatin Calcium (Crestor -) 20 mg PO HS [facility] Last Admin: 04/24/19 00:12 Dose: 20 mg - Objective Vital Signs: Vital Signs Temperature 98.8 F 04/24/19 10:21 Pulse Rate 88 04/24/19 10:21 Respiratory Rate 16 04/24/19 10:21 Blood Pressure 166/100 04/24/19 10:21 O2 Sat by Pulse Oximetry (%) 98 04/24/19 09:55 Constitutional: Yes: Well Nourished, Calm Eyes: Yes: WNL HENT: Yes: WNL Neck: Yes: Supple (trach) Cardiovascular: Yes: Regular Rate and Rhythm, S1, S2 Respiratory: Yes: Rhonchi (few scattered rhonchi) Gastrointestinal: Yes: Normal Bowel Sounds, Soft Extremities: Yes: WNL Edema: No Labs: CBC, BMP 04/24/19 06:56 04/24/19 06:56 INR, PTT INR 0.97 (0.83-1.09) 04/20/19 07:40 Problem List - Problems (1) Aspiration into airway Code(s): T17.908A - UNSP FB IN RESP TRACT, PART UNSP CAUSING OTH INJURY, INIT (2) Chronic respiratory insufficiency Code(s): R06.89 - OTHER ABNORMALITIES OF BREATHING (3) Coffee ground emesis Code(s): K92.0 - HEMATEMESIS (4) DVT (deep venous thrombosis) Code(s): I82.409 - ACUTE EMBOLISM AND THOMBOS UNSP DEEP VN UNSP LOWER EXTREMITY (5) Glaucoma Code(s): H40.9 - UNSPECIFIED GLAUCOMA Assessment/Plan Problem List - Problems (1) Aspiration into airway Code(s): T17.908A - UNSP FB IN RESP TRACT, PART UNSP CAUSING OTH INJURY, INIT (2) Chronic respiratory insufficiency Code(s): R06.89 - OTHER ABNORMALITIES OF BREATHING (3) Coffee ground emesis Code(s): K92.0 - HEMATEMESIS (4) DVT (deep venous thrombosis) Code(s): I82.409 - ACUTE EMBOLISM AND THOMBOS UNSP DEEP VN UNSP LOWER EXTREMITY (5) Glaucoma Code(s): H40.9 - UNSPECIFIED GLAUCOMA IMP CHRONIC RESPIRATORY FAILURE ? ASPIRATION COFFEE GROUND EMESIS MYASTHENIA GRAVIS HTN HLD S/P TRACH/PEG ANEMIA PLAN VENT SUPPORT ON AC MODE TRACHEAL SUCTIONING INHALED BRONCHODILATORS ABX PER ID MONITOR H+H NORMAL TRANSFUSION THRESHOLD COLONOSCOPY IN AM DR SETH
--- NOTE | 2019-04-24 11:33 | PN ---
Progress Note, Physician - Current Medication List Current Medications: Active Medications Acetaminophen (Tylenol *Children Solution* -) 320 mg PEG Q6H PRN PRN Reason: FEVER Albuterol/Ipratropium (Duoneb -) 1 amp NEB RQID [facility] Last Admin: 04/24/19 07:23 Dose: 1 amp Bisacodyl (Dulcolax Suppository -) 10 mg RC ONCE ONE Stop: 04/24/19 18:01 Brimonidine Tartrate (Alphagan 0.15% -) 1 drop OU BID [facility] Last Admin: 04/24/19 09:29 Dose: 1 drop Fentanyl (Duragesic 50mcg Patch -) 1 patch TD Q72H [facility] Last Admin: 04/22/19 22:09 Dose: 1 patch Ferrous Sulfate (Feosol) 300 mg GT DAILY [facility] Last Admin: 04/24/19 09:27 Dose: 300 mg Meropenem 1 gm/ Dextrose 100 mls @ 200 mls/hr IVPB Q8H-IV [facility] Last Admin: 04/24/19 09:27 Dose: 200 mls/hr Dextrose/Sodium Chloride (D5-1/2ns -) 1,000 mls @ 75 mls/hr IV ASDIR [facility] Last Admin: 04/24/19 02:50 Dose: 75 mls/hr Latanoprost (Xalatan 0.005% Eye Drops -) 1 drop OU HS [facility] Last Admin: 04/24/19 00:12 Dose: 1 drop Pantoprazole Sodium (Protonix Iv) 40 mg IVPUSH BID [facility] Last Admin: 04/24/19 09:27 Dose: 40 mg Polyethylene Glycol (Miralax (For Daily Use) -) 17 gm PEG TID [facility] Last Admin: 04/24/19 05:51 Dose: 17 gm Rosuvastatin Calcium (Crestor -) 20 mg PO HS [facility] Last Admin: 04/24/19 00:12 Dose: 20 mg - Objective Vital Signs: Vital Signs Temperature 98.8 F 04/24/19 10:21 Pulse Rate 88 04/24/19 10:21 Respiratory Rate 16 04/24/19 10:21 Blood Pressure 166/100 04/24/19 10:21 O2 Sat by Pulse Oximetry (%) 98 04/24/19 09:55 Cardiovascular: Yes: S1, S2 Respiratory: Yes: Mechanically Ventilated Gastrointestinal: Yes: Normal Bowel Sounds, Soft Labs: CBC, BMP 04/24/19 06:56 04/24/19 06:56 INR, PTT INR 0.97 (0.83-1.09) 04/20/19 07:40 Assessment/Plan (1) Aspiration into airway Assessment/Plan: -Pulm consult -CXR shows increased markings in the right hemithorax suggestive of atelectasis or infiltrate at the right lung base, fluid in the horizontal fissure -bronchodilators -suction as needed -Zosyn -leukocytosis resolved Code(s): T17.908A - UNSP FB IN RESP TRACT, PART UNSP CAUSING OTH INJURY, INIT (2) Chronic respiratory insufficiency Assessment/Plan: -Pulm on board -mechanical ventilator -bronchodilators -keep SpO2 >90% Code(s): R06.89 - OTHER ABNORMALITIES OF BREATHING (3) Coffee ground emesis Assessment/Plan: -GI on board -gradual drop in H/H -EGD noted -Iron panel low% -Start Ferrous sulfate via GT -monitor Hg daily -transfuse -stool OB neg Code(s): K92.0 - HEMATEMESIS (4) Glaucoma Assessment/Plan: -Alphagan and Latanoprast Code(s): H40.9 - UNSPECIFIED GLAUCOMA (5) Hyperlipidemia Assessment/Plan: -Crestor Code(s): E78.5 - HYPERLIPIDEMIA, UNSPECIFIED (6) Anemia Assessment/Plan: -drop in H/H -EGD today- no bleeding -Will need colonoscopy on 04/25/19 -PPI BID -serial CBCs -monitor Hg daily -transfuse prbc -Start Ferrous sulfate Code(s): D64.9 - ANEMIA, UNSPECIFIED (7) Chronic pain disorder Assessment/Plan: -Fentanyl patch Code(s): G89.4 - CHRONIC PAIN SYNDROME
[2019-04-24] MEDS: KCL 10 MEQ IVPB 10 MEQ/100 ML INFUS.BAG IVPB SCH ×2 (16:37→17:38)
[2019-04-24] MEDS ORDERED: BISACODYL 10 MG SUPP.RECT RC ONE (18:00)
[2019-04-24] MEDS ORDERED: BISACODYL 5 MG TABLET.DR (FP) PO ONE (18:00)
[2019-04-25] MEDS ORDERED: DEXTROSE 5%-WATER 100 ML IVPB ONE ×3 (01:22→17:09)
[2019-04-25] MEDS ORDERED: MEROPENEM 1 GM VIAL (RESTRICTED TO ID) IVPB ONE ×3 (01:22→17:09)
[2019-04-25] MEDS: MEROPENEM 1 GM in DEXTROSE 5%-WATER 100 ML IVPB SCH ×3 (02:24→17:23)
[2019-04-25] MEDS: POLYETHYLENE GLYCOL 3350 119 GM BTL PEG SCH ×2 (05:41→15:51)
[2019-04-25 08:03] LABS: BASO % 0.3 % (0-2.0); EOS % 5.1 % (0-4.5); HEMATOCRIT 28.5 % (35.4-49); HEMOGLOBIN 9.7 GM/dL (11.7-16.9); LYMPH % 18.8 % (8-40); MCH 28.5 pg (25.7-33.7); MCHC 34.1 g/dl (32.0-35.9); MEAN CELL VOLUME 83.4 fl (80-96); MEAN PLT VOLUME 8.9 fl (7.5-11.1); MONO % 4.7 % (3.8-10.2); NEUT % 71.1 % (42.8-82.8); PLATELET COUNT 192 K/MM3 (134-434); RBC 3.41 M/mm3 (4.00-5.60); RDW 16.7 % (11.9-15.9); WHITE BLOOD COUNT 7.5 K/mm3 (4.0-10.0)
[2019-04-25 08:11] LABS: ALBUMIN 2.6 g/dl (3.4-5.0); BILIRUBIN,TOTAL 0.3 mg/dL (0.2-1); BLOOD UREA NITROGEN 5.1 mg/dL (7-18); CALCIUM 9.7 mg/dL (8.5-10.1); CREATININE 0.6 mg/dL (0.55-1.3); POTASSIUM 3.2 mmol/L (3.5-5.1); TOT PROT 6.9 g/dl (6.4-8.2)
[2019-04-25] MEDS: ALBUTEROL SO4 2.5/IPRATROPIUM 0.5 INH SOL 3 ML VIAL.NEB. NEB SCH ×4 (08:11→20:30)
--- NOTE | 2019-04-25 09:12 | PN ---
Progress Note, Physician History of Present Illness: patient looks more alert stable on vent - Current Medication List Current Medications: Active Medications Acetaminophen (Tylenol *Children Solution* -) 320 mg PEG Q6H PRN PRN Reason: FEVER Albuterol/Ipratropium (Duoneb -) 1 amp NEB RQID [facility] Last Admin: 04/25/19 08:11 Dose: 1 amp Brimonidine Tartrate (Alphagan 0.15% -) 1 drop OU BID [facility] Last Admin: 04/24/19 22:11 Dose: 1 drop Fentanyl (Duragesic 50mcg Patch -) 1 patch TD Q72H [facility] Last Admin: 04/22/19 22:09 Dose: 1 patch Ferrous Sulfate (Feosol) 300 mg GT DAILY [facility] Last Admin: 04/24/19 09:27 Dose: 300 mg Meropenem 1 gm/ Dextrose 100 mls @ 200 mls/hr IVPB Q8H-IV [facility] Last Admin: 04/25/19 02:24 Dose: 200 mls/hr Dextrose/Sodium Chloride (D5-1/2ns -) 1,000 mls @ 75 mls/hr IV ASDIR [facility] Last Admin: 04/24/19 22:28 Dose: 75 mls/hr Latanoprost (Xalatan 0.005% Eye Drops -) 1 drop OU HS [facility] Last Admin: 04/24/19 22:10 Dose: 1 drop Pantoprazole Sodium (Protonix Iv) 40 mg IVPUSH BID [facility] Last Admin: 04/24/19 22:11 Dose: 40 mg Polyethylene Glycol (Miralax (For Daily Use) -) 17 gm PEG TID [facility] Last Admin: 04/25/19 05:41 Dose: Not Given Rosuvastatin Calcium (Crestor -) 20 mg PO HS [facility] Last Admin: 04/24/19 22:11 Dose: 20 mg - Objective Vital Signs: Vital Signs Temperature 98.2 F 04/25/19 08:05 Pulse Rate 90 04/25/19 08:05 Respiratory Rate 18 04/25/19 08:05 Blood Pressure 146/78 04/25/19 08:05 O2 Sat by Pulse Oximetry (%) 100 04/25/19 06:50 Constitutional: Yes: No Distress, Calm Cardiovascular: Yes: Regular Rate and Rhythm Respiratory: Yes: Mechanically Ventilated, Other (trach) Musculoskeletal: Yes: WNL Extremities: Yes: Other Neurological: Yes: Alert, Other Psychiatric: Yes: Other Labs: CBC, BMP 04/25/19 07:20 04/25/19 07:20 INR, PTT INR 0.97 (0.83-1.09) 04/20/19 07:40 Assessment/Plan Problem List - Problems (1) Aspiration into airway Code(s): T17.908A - UNSP FB IN RESP TRACT, PART UNSP CAUSING OTH INJURY, INIT (2) Chronic respiratory insufficiency Code(s): R06.89 - OTHER ABNORMALITIES OF BREATHING (3) Coffee ground emesis Code(s): K92.0 - HEMATEMESIS (4) DVT (deep venous thrombosis) Code(s): I82.409 - ACUTE EMBOLISM AND THOMBOS UNSP DEEP VN UNSP LOWER EXTREMITY (5) Glaucoma Code(s): H40.9 - UNSPECIFIED GLAUCOMA 6 uti patient now esbl plan continue abx improving nutrition rest as per the team h and h stable
[2019-04-25] MEDS: BRIMONIDINE TARTRATE 0.15% OPHTHALMIC 5 ML BOTTLE OU SCH ×2 (10:43→22:50)
[2019-04-25] MEDS: PANTOPRAZOLE SODIUM 40 MG VIAL IVPUSH SCH (10:43)
[2019-04-25] MEDS: FERROUS SO4 300 MG/5 ML ORAL SOLN UNIT DOSE CUPS GT SCH (10:44)
--- NOTE | 2019-04-25 10:59 | PN ---
Progress Note (short form) - Note Progress Note: PULMONARY Vented, awake. Nonverbal. Vital Signs Period Temp Pulse Resp BP Sys/Page Pulse Ox Last 24 Hr 98.2 F-99.3 F 83-98 13-20 146-160/78-100 100-100 Gen: vented, awake Heart: RRR Lung: decreased breath sounds at the bases Abd: soft, nontender Ext: no edema CBC, BMP 04/25/19 07:20 04/25/19 07:20 Active Medications Acetaminophen (Tylenol *Children Solution* -) 320 mg PEG Q6H PRN PRN Reason: FEVER Albuterol/Ipratropium (Duoneb -) 1 amp NEB RQID [facility] Last Admin: 04/25/19 08:11 Dose: 1 amp Brimonidine Tartrate (Alphagan 0.15% -) 1 drop OU BID [facility] Last Admin: 04/25/19 10:43 Dose: 1 drop Fentanyl (Duragesic 50mcg Patch -) 1 patch TD Q72H [facility] Last Admin: 04/22/19 22:09 Dose: 1 patch Ferrous Sulfate (Feosol) 300 mg GT DAILY [facility] Last Admin: 04/25/19 10:44 Dose: Not Given Meropenem 1 gm/ Dextrose 100 mls @ 200 mls/hr IVPB Q8H-IV [facility] Last Admin: 04/25/19 10:42 Dose: 200 mls/hr Dextrose/Sodium Chloride (D5-1/2ns -) 1,000 mls @ 75 mls/hr IV ASDIR [facility] Last Admin: 04/24/19 22:28 Dose: 75 mls/hr Latanoprost (Xalatan 0.005% Eye Drops -) 1 drop OU HS [facility] Last Admin: 04/24/19 22:10 Dose: 1 drop Pantoprazole Sodium (Protonix Iv) 40 mg IVPUSH BID [facility] Last Admin: 04/25/19 10:43 Dose: 40 mg Polyethylene Glycol (Miralax (For Daily Use) -) 17 gm PEG TID [facility] Last Admin: 04/25/19 05:41 Dose: Not Given Rosuvastatin Calcium (Crestor -) 20 mg PO HS [facility] Last Admin: 04/24/19 22:11 Dose: 20 mg A/P Chronic Respiratory Failure s/p Tracheostomy r/o GI Bleed Myasthenia Gravis HTN Hyperlipidemia Anemia - for colonoscopy - monitor H/H - on empiric antibiotics - continue volume assist control - DVT prophylaxis
--- NOTE | 2019-04-25 13:19 | PN ---
Progress Note, Physician Chief Complaint: Coffee ground emesis History of Present Illness: Saw pt earlier in AM NAD mechanical vent For colonoscopy - Current Medication List Current Medications: Active Medications Acetaminophen (Tylenol *Children Solution* -) 320 mg PEG Q6H PRN PRN Reason: FEVER Albuterol/Ipratropium (Duoneb -) 1 amp NEB RQID [facility] Last Admin: 04/25/19 11:22 Dose: 1 amp Brimonidine Tartrate (Alphagan 0.15% -) 1 drop OU BID [facility] Last Admin: 04/25/19 10:43 Dose: 1 drop Fentanyl (Duragesic 50mcg Patch -) 1 patch TD Q72H [facility] Last Admin: 04/22/19 22:09 Dose: 1 patch Ferrous Sulfate (Feosol) 300 mg GT DAILY [facility] Last Admin: 04/25/19 10:44 Dose: Not Given Meropenem 1 gm/ Dextrose 100 mls @ 200 mls/hr IVPB Q8H-IV [facility] Last Admin: 04/25/19 10:42 Dose: 200 mls/hr Dextrose/Sodium Chloride (D5-1/2ns -) 1,000 mls @ 75 mls/hr IV ASDIR [facility] Last Admin: 04/24/19 22:28 Dose: 75 mls/hr Latanoprost (Xalatan 0.005% Eye Drops -) 1 drop OU HS [facility] Last Admin: 04/24/19 22:10 Dose: 1 drop Pantoprazole Sodium (Protonix Iv) 40 mg IVPUSH BID [facility] Last Admin: 04/25/19 10:43 Dose: 40 mg Polyethylene Glycol (Miralax (For Daily Use) -) 17 gm PEG TID [facility] Last Admin: 04/25/19 05:41 Dose: Not Given Rosuvastatin Calcium (Crestor -) 20 mg PO HS [facility] Last Admin: 04/24/19 22:11 Dose: 20 mg - Objective Vital Signs: Vital Signs Temperature 98.1 F 04/25/19 12:00 Pulse Rate 90 04/25/19 12:00 Respiratory Rate 14 04/25/19 12:00 Blood Pressure 148/90 04/25/19 12:00 O2 Sat by Pulse Oximetry (%) 100 04/25/19 10:00 Constitutional: Yes: No Distress, Calm, Cachectic Cardiovascular: Yes: Regular Rate and Rhythm Respiratory: Yes: Mechanically Ventilated, Rhonchi Gastrointestinal: Yes: WNL Genitourinary: Yes: Gates Present Musculoskeletal: Yes: Other (generalized atrophy) Edema: No Peripheral Pulses WNL: Yes Neurological: Yes: Pre-Existing Deficit Labs: CBC, BMP 04/25/19 07:20 04/25/19 07:20 INR, PTT INR 0.97 (0.83-1.09) 04/20/19 07:40 Problem List - Problems (1) Functional quadriplegia Code(s): R53.2 - FUNCTIONAL QUADRIPLEGIA (2) UTI due to extended-spectrum beta lactamase (ESBL) producing Escherichia coli Assessment/Plan: -ID on board -On meropenem Code(s): N39.0 - URINARY TRACT INFECTION, SITE NOT SPECIFIED; B96.29 - OTH ESCHERICHIA COLI THE CAUSE OF DISEASES CLASSD ELSWHR; Z16.12 - EXTENDED SPECTRUM BETA LACTAMASE (ESBL) RESISTANCE (3) Hypokalemia Assessment/Plan: -KCl 40 meq once+KCl 10 meq x 3 -Labs in AM Code(s): E87.6 - HYPOKALEMIA Assessment/Plan (1) Aspiration into airway Assessment/Plan: -Pulm consult -CXR shows increased markings in the right hemithorax suggestive of atelectasis or infiltrate at the right lung base, fluid in the horizontal fissure -bronchodilators -suction as needed -leukocytosis resolved Code(s): T17.908A - UNSP FB IN RESP TRACT, PART UNSP CAUSING OTH INJURY, INIT (2) Chronic respiratory insufficiency Assessment/Plan: -Pulm on board -mechanical ventilator -bronchodilators -keep SpO2 >90% Code(s): R06.89 - OTHER ABNORMALITIES OF BREATHING (3) Coffee ground emesis Assessment/Plan: -GI on board -gradual drop in H/H -EGD done -Going for colonoscopy today -Iron panel low% -Start Ferrous sulfate via GT -monitor Hg daily -transfuse for Hg <7.0 -stool OB neg Code(s): K92.0 - HEMATEMESIS (4) Glaucoma Assessment/Plan: -Alphagan and Latanoprast Code(s): H40.9 - UNSPECIFIED GLAUCOMA (5) Hyperlipidemia Assessment/Plan: -Crestor Code(s): E78.5 - HYPERLIPIDEMIA, UNSPECIFIED (6) Anemia Assessment/Plan: -drop in H/H -EGD today- no bleeding -Will need colonoscopy on 04/25/19 -PPI BID -serial CBCs -monitor Hg daily -transfuse for Hg <7.0 to avoid fluid overload -Start Ferrous sulfate Code(s): D64.9 - ANEMIA, UNSPECIFIED (7) Chronic pain disorder Assessment/Plan: -Fentanyl patch Code(s): G89.4 - CHRONIC PAIN SYNDROME
--- NOTE | 2019-04-25 15:15 | PN ---
Progress Note (short form) - Note Progress Note: GI Procedure Note: Please see colonoscopy report. Only an incomplete colonoscopy to the mid-ascending colon could be accomplished given the patient' s colon redundancy and difficulties in positioning Kvng. Diverticulosis was found but no foci of bleeding and no neoplasms were found. I called the patient' s son Kvng and left a message for him to call me to discuss the results. Will resume feedings. I believe that his bleeding was from the erosive reflux esophagitis given his coffee ground emesis. Continue PPI and head elevation. No GI objections to transfer back to the [place] if there is no further bleeding. Problem List - Problems (1) Coffee ground emesis Code(s): K92.0 - HEMATEMESIS (2) Anemia Code(s): D64.9 - ANEMIA, UNSPECIFIED (3) Myasthenia gravis Code(s): G70.00 - MYASTHENIA GRAVIS WITHOUT (ACUTE) EXACERBATION (4) Tracheostomy in place Code(s): Z93.0 - TRACHEOSTOMY STATUS (5) Gastrostomy in place Code(s): Z93.1 - GASTROSTOMY STATUS (6) DVT (deep venous thrombosis) Code(s): I82.409 - ACUTE EMBOLISM AND THOMBOS UNSP DEEP VN UNSP LOWER EXTREMITY
[2019-04-25] MEDS: DEXTROSE 5%-0.45% SALINE 1,000 ML IV SCH (17:23)
[2019-04-25] MEDS ORDERED: POTASSIUM CHLORIDE ORAL LIQUID 20 MEQ/15 ML PO ONE (18:02)
[2019-04-25] MEDS: fentaNYL 50mcg/hr PATCH.TD72 TD SCH (18:45)
[2019-04-25] MEDS: KCL 10 MEQ IVPB 10 MEQ/100 ML INFUS.BAG IVPB SCH ×2 (18:45→22:50)
[2019-04-25] MEDS: PANTOPRAZOLE SOD 40 MG SUSPENSION PACKET NGT SCH (22:50)
[2019-04-25] MEDS: LATANOPROST 0.005% OPHTH SOLN 2.5ML BOTTLE OU SCH (22:50)
[2019-04-25] MEDS: ROSUVASTATIN CA 20 MG TABLET (FP) PO SCH (22:50)
[2019-04-26] MEDS ORDERED: DEXTROSE 5%-WATER 100 ML IVPB ONE ×3 (00:54→16:49)
[2019-04-26] MEDS ORDERED: MEROPENEM 1 GM VIAL (RESTRICTED TO ID) IVPB ONE ×3 (00:54→16:49)
[2019-04-26] MEDS: KCL 10 MEQ IVPB 10 MEQ/100 ML INFUS.BAG IVPB SCH (00:59)
[2019-04-26] MEDS: MEROPENEM 1 GM in DEXTROSE 5%-WATER 100 ML IVPB SCH ×3 (02:10→17:11)
[2019-04-26 08:28] LABS: BASO % 0.3 % (0-2.0); EOS % 6.2 % (0-4.5); HEMATOCRIT 28.8 % (35.4-49); HEMOGLOBIN 9.7 GM/dL (11.7-16.9); LYMPH % 22.2 % (8-40); MCH 28.2 pg (25.7-33.7); MCHC 33.5 g/dl (32.0-35.9); MEAN CELL VOLUME 84.3 fl (80-96); MEAN PLT VOLUME 8.9 fl (7.5-11.1); MONO % 6.6 % (3.8-10.2); NEUT % 64.7 % (42.8-82.8); PLATELET COUNT 194 K/MM3 (134-434); RBC 3.42 M/mm3 (4.00-5.60); RDW 16.3 % (11.9-15.9); RETICULOCYTES 1.37 % (0.5-1.5); WHITE BLOOD COUNT 6.4 K/mm3 (4.0-10.0)
[2019-04-26] MEDS: ALBUTEROL SO4 2.5/IPRATROPIUM 0.5 INH SOL 3 ML VIAL.NEB. NEB SCH ×4 (08:47→20:38)
[2019-04-26 08:57] LABS: ALBUMIN 2.5 g/dl (3.4-5.0); BILIRUBIN,TOTAL 0.4 mg/dL (0.2-1); BLOOD UREA NITROGEN 3.7 mg/dL (7-18); CALCIUM 9.6 mg/dL (8.5-10.1); CREATININE 0.6 mg/dL (0.55-1.3); POTASSIUM 3.9 mmol/L (3.5-5.1); TOT PROT 6.6 g/dl (6.4-8.2)
--- NOTE | 2019-04-26 10:30 | PN ---
Progress Note (short form) - Note Progress Note: PULMONARY Vented, awake. Nonverbal. s/p colonoscopy showing mild diverticulosis. Vital Signs Period Temp Pulse Resp BP Sys/Page Pulse Ox Last 24 Hr 97.4 F-99.0 F 77-90 10-13 136-148/61-90 98 Gen: vented, awake Heart: RRR Lung: decreased breath sounds at the bases Abd: soft, nontender Ext: no edema CBC, BMP 04/26/19 07:50 04/26/19 07:50 Active Medications Acetaminophen (Tylenol *Children Solution* -) 320 mg PEG Q6H PRN PRN Reason: FEVER Albuterol/Ipratropium (Duoneb -) 1 amp NEB RQID [facility] Last Admin: 04/26/19 08:47 Dose: 1 amp Brimonidine Tartrate (Alphagan 0.15% -) 1 drop OU BID [facility] Last Admin: 04/25/19 22:50 Dose: 1 drop Fentanyl (Duragesic 50mcg Patch -) 1 patch TD Q72H [facility] Last Admin: 04/25/19 18:45 Dose: 1 patch Ferrous Sulfate (Feosol) 300 mg GT DAILY [facility] Last Admin: 04/25/19 10:44 Dose: Not Given Meropenem 1 gm/ Dextrose 100 mls @ 200 mls/hr IVPB Q8H-IV [facility] Last Admin: 04/26/19 02:10 Dose: 200 mls/hr Dextrose/Sodium Chloride (D5-1/2ns -) 1,000 mls @ 30 mls/hr IV ASDIR [facility] Last Admin: 04/25/19 17:23 Dose: 30 mls/hr Latanoprost (Xalatan 0.005% Eye Drops -) 1 drop OU HS [facility] Last Admin: 04/25/19 22:50 Dose: 1 drop Pantoprazole Sodium (Protonix Packets For Oral Suspension -) 40 mg NGT BID [facility] Last Admin: 04/25/19 22:50 Dose: 40 mg Polyethylene Glycol (Miralax (For Daily Use) -) 17 gm GT DAILY [facility] Rosuvastatin Calcium (Crestor -) 20 mg PO HS [facility] Last Admin: 04/25/19 22:50 Dose: 20 mg A/P Chronic Respiratory Failure s/p Tracheostomy r/o GI Bleed Myasthenia Gravis HTN Hyperlipidemia Anemia - monitor H/H - on empiric antibiotics - continue volume assist control - DVT prophylaxis
--- NOTE | 2019-04-26 11:27 | DS ---
Physical Examination Vital Signs: Vital Signs Temperature 97.8 F 04/26/19 04:00 Pulse Rate 77 04/26/19 04:00 Respiratory Rate 13 04/26/19 09:36 Blood Pressure 141/61 04/26/19 04:00 O2 Sat by Pulse Oximetry (%) 98 04/25/19 21:00 Findings/Remarks: 79 year old M with h/o chronic resp insufficiency s/p trach to vent, FTT s/p PEG placement, HTN, HLD, myastenia gravis, GERD, chronic constipation, BPH, anemia, and DVT on SC heparin presents from [facility] for evaluation of three episodes of coffee ground emesis today. Patient was brought in by EMS for further evaluation. Patient is non-verbal and is chronically vent dependent, therefore much history or symptoms were difficult to obtain. Constitutional: Yes: No Distress, Calm, Thin Cardiovascular: Yes: Regular Rate and Rhythm Respiratory: Yes: Mechanically Ventilated, Rhonchi (diffuse) Gastrointestinal: Yes: WNL, Other (G tube intact) Musculoskeletal: Yes: Muscle Weakness, Other (generalized atrophy) Extremities: Yes: WNL Edema: No Peripheral Pulses WNL: Yes Neurological: Yes: Pre-Existing Deficit Labs: CBC, BMP 04/26/19 07:50 04/26/19 07:50 Discharge Summary Reason For Visit: COFFEE GROUND EMESIS Current Active Problems Anemia (Acute) Aspiration into airway (Acute) Chronic pain disorder (Acute) Chronic respiratory insufficiency (Acute) Coffee ground emesis (Acute) DVT (deep venous thrombosis) (Acute) Functional quadriplegia (Acute) Gastrostomy in place (Acute) Glaucoma (Acute) Hyperlipidemia (Acute) Hypokalemia (Acute) Myasthenia gravis (Acute) Prophylactic measure (Acute) Tracheostomy in place (Acute) UTI due to extended-spectrum beta lactamase (ESBL) producing Escherichia coli ( Acute) Hospital Course: Laboratory Last Values WBC 6.4 K/mm3 (4.0-10.0) 04/26/19 07:50 RBC 3.42 M/mm3 (4.00-5.60) L 04/26/19 07:50 Hgb 9.7 GM/dL (11.7-16.9) L 04/26/19 07:50 Hct 28.8 % (35.4-49) L 04/26/19 07:50 MCV 84.3 fl (80-96) 04/26/19 07:50 MCH 28.2 pg (25.7-33.7) 04/26/19 07:50 MCHC 33.5 g/dl (32.0-35.9) 04/26/19 07:50 RDW 16.3 % (11.9-15.9) H 04/26/19 07:50 Plt Count 194 K/MM3 (134-434) 04/26/19 07:50 MPV 8.9 fl (7.5-11.1) 04/26/19 07:50 Absolute Neuts (auto) 4.2 K/mm3 (1.5-8.0) 04/26/19 07:50 Neutrophils % 64.7 % (42.8-82.8) 04/26/19 07:50 Lymphocytes % 22.2 % (8-40) 04/26/19 07:50 Monocytes % 6.6 % (3.8-10.2) 04/26/19 07:50 Eosinophils % 6.2 % (0-4.5) H 04/26/19 07:50 Basophils % 0.3 % (0-2.0) 04/26/19 07:50 Nucleated RBC % 0 % (0-0) 04/26/19 07:50 Platelet Estimate Adequate 04/19/19 13:00 Platelet Comment No clumping noted 04/19/19 13:00 Retic Count 1.37 % (0.5-1.5) D 04/26/19 07:50 PT with INR 11.50 SEC (9.7-13.0) 04/20/19 07:40 INR 0.97 (0.83-1.09) 04/20/19 07:40 PTT (Actin FS) 17.6 SECONDS (25.2-36.5) L 04/20/19 07:40 Sodium 137 mmol/L (136-145) 04/26/19 07:50 Potassium 3.9 mmol/L (3.5-5.1) 04/26/19 07:50 Chloride 103 mmol/L (98-107) 04/26/19 07:50 Carbon Dioxide 30 mmol/L (21-32) 04/26/19 07:50 Anion Gap 5 MMOL/L (8-16) L 04/26/19 07:50 BUN 3.7 mg/dL (7-18) L 04/26/19 07:50 Creatinine 0.6 mg/dL (0.55-1.3) 04/26/19 07:50 Est GFR (CKD-EPI)AfAm 112.40 04/26/19 07:50 Est GFR (CKD-EPI)NonAf 96.98 04/26/19 07:50 Random Glucose 94 mg/dL (74-106) 04/26/19 07:50 Lactic Acid 1.4 mmol/L (0.4-2.0) 04/20/19 00:45 Calcium 9.6 mg/dL (8.5-10.1) 04/26/19 07:50 Phosphorus 3.2 mg/dL (2.5-4.9) 04/20/19 07:40 Magnesium 2.0 mg/dL (1.8-2.4) 04/24/19 06:56 Iron 37 ug/dL (38-169) L 04/21/19 06:45 TIBC 280 ug/dL (250-450) 04/21/19 06:45 Iron Saturation 13 % (15-55) L 04/21/19 06:45 Unsaturated IBC 243 ug/dL (111-343) 04/21/19 06:45 Ferritin 185.9 ng/ml (8-388) 04/21/19 06:45 Total Bilirubin 0.4 mg/dL (0.2-1) 04/26/19 07:50 AST 22 U/L (15-37) 04/26/19 07:50 ALT 43 U/L (13-61) 04/26/19 07:50 Alkaline Phosphatase 177 U/L (45-117) H 04/26/19 07:50 LD Total 309 U/L (87-246) H 04/19/19 13:00 Creatine Kinase 90 U/L (26-308) 04/19/19 13:00 Troponin I 0.02 ng/ml (0.00-0.05) 04/19/19 13:00 Total Protein 6.6 g/dl (6.4-8.2) 04/26/19 07:50 Total Protein (PEP) 6.9 g/dL (6.0-8.5) 04/21/19 06:45 Albumin 2.5 g/dl (3.4-5.0) L 04/26/19 07:50 Albumin (PEP) 3.0 gm/dl (2.9-4.4) 04/21/19 06:45 Globulin 3.9 g/dL (2.2-3.9) 04/21/19 06:45 Albumin/Globulin Ratio 0.8 (0.7-1.7) 04/21/19 06:45 Beta Globulins 1.1 gm/dL (0.7-1.3) 04/21/19 06:45 Urine Color Yellow 04/20/19 14:30 Urine Appearance Clear 04/20/19 14:30 Urine pH 6.0 (5.0-8.0) 04/20/19 14:30 Ur Specific [place] 1.020 (1.010-1.035) 04/20/19 14:30 Urine Protein 1+ (NEGATIVE) H 04/20/19 14:30 Urine Glucose (UA) Negative (NEGATIVE) 04/20/19 14:30 Urine Ketones Negative (NEGATIVE) 04/20/19 14:30 Urine Blood Negative (NEGATIVE) 04/20/19 14:30 Urine Nitrite Positive (NEGATIVE) H 04/20/19 14:30 Urine Bilirubin Negative (NEGATIVE) 04/20/19 14:30 Urine Urobilinogen 0.2 mg/dL (0.2-1.0) 04/20/19 14:30 Ur Leukocyte Esterase 2+ (NEGATIVE) H 04/20/19 14:30 Urine WBC (Auto) 98 /hpf (0-5) 04/20/19 14:30 Urine RBC (Auto) 2 /hpf (0-4) 04/20/19 14:30 Urine Casts (Auto) 19 /lpf (0-8) 04/20/19 14:30 U Epithel Cells (Auto) 2.9 /HPF (0-5/HPF) 04/20/19 14:30 Urine Bacteria (Auto) 44.0 /hpf (NEGATIVE) 04/20/19 14:30 Stool Occult Blood Negative (NEGATIVE) 04/19/19 13:18 JF M-Gildardo Not observed g/dL (Not Observed) 04/21/19 06:45 Tiss Transglutamin IgG 3 U/mL (0-5) 04/21/19 06:45 Tiss Transglutamin IgA < 2 U/mL (0-3) 04/21/19 06:45 Blood Type O POSITIVE 04/22/19 18:00 Antibody Screen Negative 04/22/19 18:00 Crossmatch See Detail 04/22/19 18:00 Microbiology 04/20/19 07:30 Blood - Peripheral Venous Blood Culture - Final NO GROWTH AFTER 5 DAYS INCUBATION 04/20/19 07:40 Blood - Peripheral Venous Blood Culture - Final NO GROWTH AFTER 5 DAYS INCUBATION 04/19/19 14:10 Blood - Peripheral Venous Blood Culture - Final NO GROWTH AFTER 5 DAYS INCUBATION 04/20/19 12:00 Urine - Urine Clean Catch Urine Culture - Final Klebsiella Pneumoniae - Esbl Vital Signs Temp 97.8 F 04/26/19 04:00 Pulse 77 04/26/19 04:00 Resp 13 04/26/19 09:36 BP 141/61 04/26/19 04:00 Pulse Ox 98 04/25/19 21:00 Intake & Output 04/25/19 04/25/19 04/26/19 11:59 23:59 11:59 Intake Total 1000 1000 400 Output Total 600 1300 Balance 400 -300 400 Intake: IV 900 900 100 D5-1/2Ns - 1,000 ml @ 30 100 mls/hr IV ASDIR [facility] Rx#: [id number] D5-1/2Ns - 1,000 ml @ 75 900 900 mls/hr IV [facility]IR [facility] Rx#: [id number] IVPB 100 100 300 Output: Urine 600 1300 Void 600 1300 Other: Voiding Method Indwelling Catheter Indwelling Catheter Bowel Movement Yes No # Bowel Movements 1 Condition: Stable - Instructions Disposition: LONG TERM FACILITY - Home Medications Comprehensive Discharge Medication List: Ambulatory Orders Acetaminophen [Tylenol] 325 mg PEG QID PRN 04/19/19 Brimonidine Tartrate [Alphagan 0.15% -] 1 drop OU BID 04/19/19 FENTANYL 50mcg PATCH [DURAGESIC 50 mcg PATCH -] 1 each TD Q72H 04/19/19 Ferrous Sulfate 6.82 ml PEG DAILY 04/19/19 Latanoprost 0.005% Eye Drops [Xalatan 0.005% Eye Drops -] 1 drop OU HS 04/19/19 Multivitamin [One-Daily Multi-Vitamin] 1 each PEG DAILY 04/19/19 Polyethylene Glycol [Polyox Wsr-301] 1 gm PEG BID 04/19/19 Rosuvastatin Calcium [Crestor] 20 mg PEG HS 04/19/19 Acetaminophen Liquid [Tylenol 100mg/mL *Infant Drops* -] 320 mg PEG Q6H PRN ml 04/26/19 Albuterol 2.5/Ipratropium 0.5 [Duoneb -] 1 amp NEB RQID amp 04/26/19 Pantoprazole Suspension [Protonix Packets For Oral Suspension -] 40 mg NGT BID packet 04/26/19 Polyethylene Glycol 3350 [Miralax 119 gm Btl -] 17 gm GT DAILY bottle 04/26/19
[2019-04-26] MEDS: POLYETHYLENE GLYCOL 3350 119 GM BTL GT SCH (11:32)
[2019-04-26] MEDS: FERROUS SO4 300 MG/5 ML ORAL SOLN UNIT DOSE CUPS GT SCH (11:32)
[2019-04-26] MEDS: PANTOPRAZOLE SOD 40 MG SUSPENSION PACKET NGT SCH ×2 (11:33→23:09)
[2019-04-26] MEDS: BRIMONIDINE TARTRATE 0.15% OPHTHALMIC 5 ML BOTTLE OU SCH ×2 (11:33→23:10)
--- NOTE | 2019-04-26 12:45 | PN ---
Progress Note, Physician History of Present Illness: patient stable no new issues - Current Medication List Current Medications: Active Medications Acetaminophen (Tylenol *Children Solution* -) 320 mg PEG Q6H PRN PRN Reason: FEVER Albuterol/Ipratropium (Duoneb -) 1 amp NEB RQID [facility] Last Admin: 04/26/19 11:53 Dose: 1 amp Brimonidine Tartrate (Alphagan 0.15% -) 1 drop OU BID [facility] Last Admin: 04/26/19 11:33 Dose: 1 drop Fentanyl (Duragesic 50mcg Patch -) 1 patch TD Q72H [facility] Last Admin: 04/25/19 18:45 Dose: 1 patch Ferrous Sulfate (Feosol) 300 mg GT DAILY [facility] Last Admin: 04/26/19 11:32 Dose: 300 mg Meropenem 1 gm/ Dextrose 100 mls @ 200 mls/hr IVPB Q8H-IV [facility] Last Admin: 04/26/19 11:32 Dose: 200 mls/hr Dextrose/Sodium Chloride (D5-1/2ns -) 1,000 mls @ 30 mls/hr IV ASDIR [facility] Last Admin: 04/25/19 17:23 Dose: 30 mls/hr Latanoprost (Xalatan 0.005% Eye Drops -) 1 drop OU HS [facility] Last Admin: 04/25/19 22:50 Dose: 1 drop Pantoprazole Sodium (Protonix Packets For Oral Suspension -) 40 mg NGT BID [facility] Last Admin: 04/26/19 11:33 Dose: 40 mg Polyethylene Glycol (Miralax (For Daily Use) -) 17 gm GT DAILY [facility] Last Admin: 04/26/19 11:32 Dose: 17 gm Rosuvastatin Calcium (Crestor -) 20 mg PO HS [facility] Last Admin: 04/25/19 22:50 Dose: 20 mg - Objective Vital Signs: Vital Signs Temperature 97.8 F 04/26/19 04:00 Pulse Rate 77 04/26/19 04:00 Respiratory Rate 13 04/26/19 09:36 Blood Pressure 141/61 04/26/19 04:00 O2 Sat by Pulse Oximetry (%) 98 04/25/19 21:00 Constitutional: Yes: No Distress, Calm Cardiovascular: Yes: S1, S2 Respiratory: Yes: Other (trach) Gastrointestinal: Yes: Normal Bowel Sounds, Soft, Other (peg tube in place) Musculoskeletal: Yes: WNL Extremities: Yes: Other (contracted) Neurological: Yes: Alert, Other Labs: CBC, BMP 04/26/19 07:50 04/26/19 07:50 INR, PTT INR 0.97 (0.83-1.09) 04/20/19 07:40 Assessment/Plan Problem List - Problems (1) Aspiration into airway Code(s): T17.908A - UNSP FB IN RESP TRACT, PART UNSP CAUSING OTH INJURY, INIT (2) Chronic respiratory insufficiency Code(s): R06.89 - OTHER ABNORMALITIES OF BREATHING (3) Coffee ground emesis Code(s): K92.0 - HEMATEMESIS (4) DVT (deep venous thrombosis) Code(s): I82.409 - ACUTE EMBOLISM AND THOMBOS UNSP DEEP VN UNSP LOWER EXTREMITY (5) Glaucoma Code(s): H40.9 - UNSPECIFIED GLAUCOMA 6 uti patient now esbl plan continue abx needs meropenam for a total of 14 days
[2019-04-26] MEDS: DEXTROSE 5%-0.45% SALINE 1,000 ML IV SCH (17:11)
[2019-04-26] MEDS: ROSUVASTATIN CA 20 MG TABLET (FP) PO SCH (23:09)
[2019-04-26] MEDS: LATANOPROST 0.005% OPHTH SOLN 2.5ML BOTTLE OU SCH (23:10)
[2019-04-27] MEDS ORDERED: MEROPENEM 1 GM VIAL (RESTRICTED TO ID) IVPB ONE ×2 (02:05→11:48)
[2019-04-27] MEDS ORDERED: DEXTROSE 5%-WATER 100 ML IVPB ONE ×2 (02:05→11:48)
[2019-04-27] MEDS: MEROPENEM 1 GM in DEXTROSE 5%-WATER 100 ML IVPB SCH ×2 (02:19→11:58)
[2019-04-27] MEDS: ALBUTEROL SO4 2.5/IPRATROPIUM 0.5 INH SOL 3 ML VIAL.NEB. NEB SCH ×3 (08:00→15:59)
--- NOTE | 2019-04-27 08:48 | DS ---
Physical Examination Vital Signs: Vital Signs Temperature 98.0 F 04/27/19 06:00 Pulse Rate 80 04/27/19 08:00 Respiratory Rate 12 04/27/19 08:00 Blood Pressure 149/70 04/27/19 06:00 O2 Sat by Pulse Oximetry (%) 100 04/27/19 08:00 Cardiovascular: Yes: S1, S2 Respiratory: Yes: Mechanically Ventilated Gastrointestinal: Yes: Normal Bowel Sounds, Soft. 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) UTI due to extended-spectrum beta lactamase (ESBL) producing Escherichia coli ( Acute) Hospital Course: Assessment/Plan (1) Aspiration into airway Assessment/Plan: -Pulm consult -CXR shows increased markings in the right hemithorax suggestive of atelectasis or infiltrate at the right lung base, fluid in the horizontal fissure -bronchodilators -suction as needed -leukocytosis resolved Code(s): T17.908A - UNSP FB IN RESP TRACT, PART UNSP CAUSING OTH INJURY, INIT (2) Chronic respiratory insufficiency Assessment/Plan: -Pulm on board -mechanical ventilator -bronchodilators -keep SpO2 >90% Code(s): R06.89 - OTHER ABNORMALITIES OF BREATHING (3) Coffee ground emesis Assessment/Plan: -GI on board -gradual drop in H/H -EGD and Colonoscopy done GI Procedure Note: Please see colonoscopy report. Only an incomplete colonoscopy to the mid-ascending colon could be accomplished given the patient' s colon redundancy and difficulties in positioning Kvng. Diverticulosis was found but no foci of bleeding and no neoplasms were found. I called the patient' s son Kvng and left a message for him to call me to discuss the results. Will resume feedings. I believe that his bleeding was from the erosive reflux esophagitis given his coffee ground emesis. Continue PPI and head elevation. No GI objections to transfer back to the [place] if there is no further bleeding. Monitor labs -stool OB neg Code(s): K92.0 - HEMATEMESIS (4) Glaucoma Assessment/Plan: -Alphagan and Latanoprast Code(s): H40.9 - UNSPECIFIED GLAUCOMA (5) Hyperlipidemia Assessment/Plan: -Crestor Code(s): E78.5 - HYPERLIPIDEMIA, UNSPECIFIED (6) Anemia Assessment/Plan: As Above Code(s): D64.9 - ANEMIA, UNSPECIFIED (7) Chronic pain disorder Assessment/Plan: -Fentanyl patch Code(s): G89.4 - CHRONIC PAIN SYNDROME Condition: Stable - Instructions Disposition: LONG TERM FACILITY - Home Medications Comprehensive Discharge Medication List: Ambulatory Orders Brimonidine Tartrate [Alphagan 0.15% -] 1 drop OU BID 04/19/19 Ferrous Sulfate 6.82 ml PEG DAILY 04/19/19 Latanoprost 0.005% Eye Drops [Xalatan 0.005% Eye Drops -] 1 drop OU HS 04/19/19 Multivitamin [One-Daily Multi-Vitamin] 1 each PEG DAILY 04/19/19 Rosuvastatin Calcium [Crestor] 20 mg PEG HS 04/19/19 Acetaminophen Liquid [Tylenol 100mg/mL * Drops* -] 320 mg PEG Q6H PRN ml 04/26/19 Albuterol 2.5/Ipratropium 0.5 [Duoneb -] 1 amp NEB RQID amp 04/26/19 Pantoprazole Suspension [Protonix Packets For Oral Suspension -] 40 mg NGT BID packet 04/26/19 Polyethylene Glycol 3350 [Miralax 119 gm Btl -] 17 gm GT DAILY bottle 04/26/19 FENTANYL 50mcg PATCH [DURAGESIC 50 mcg PATCH -] 1 patch TD Q72H patch.td72 MDD 1 04/27/19 Meropenem [Merrem (Restricted To Id) -] 1 gm IVPB Q8H-IV vial 04/27/19
--- NOTE | 2019-04-27 09:04 | PN ---
Progress Note, Physician History of Present Illness: patient stable doing well - Current Medication List Current Medications: Active Medications Acetaminophen (Tylenol *Children Solution* -) 320 mg PEG Q6H PRN PRN Reason: FEVER Albuterol/Ipratropium (Duoneb -) 1 amp NEB RQID REPLACED BY [facility] Last Admin: 04/27/19 08:00 Dose: 1 amp Brimonidine Tartrate (Alphagan 0.15% -) 1 drop OU BID REPLACED BY [facility] Last Admin: 04/26/19 23:10 Dose: 1 drop Fentanyl (Duragesic 50mcg Patch -) 1 patch TD Q72H REPLACED BY [facility] Last Admin: 04/25/19 18:45 Dose: 1 patch Ferrous Sulfate (Feosol) 300 mg GT DAILY REPLACED BY [facility] Last Admin: 04/26/19 11:32 Dose: 300 mg Meropenem 1 gm/ Dextrose 100 mls @ 200 mls/hr IVPB Q8H-IV REPLACED BY [facility] Last Admin: 04/27/19 02:19 Dose: 200 mls/hr Latanoprost (Xalatan 0.005% Eye Drops -) 1 drop OU HS REPLACED BY [facility] Last Admin: 04/26/19 23:10 Dose: 1 drop Pantoprazole Sodium (Protonix Packets For Oral Suspension -) 40 mg NGT BID REPLACED BY [facility] Last Admin: 04/26/19 23:09 Dose: 40 mg Polyethylene Glycol (Miralax (For Daily Use) -) 17 gm GT DAILY REPLACED BY [facility] Last Admin: 04/26/19 11:32 Dose: 17 gm Rosuvastatin Calcium (Crestor -) 20 mg PO HS REPLACED BY [facility] Last Admin: 04/26/19 23:09 Dose: 20 mg - Objective Vital Signs: Vital Signs Temperature 98.0 F 04/27/19 06:00 Pulse Rate 80 04/27/19 08:00 Respiratory Rate 12 04/27/19 08:00 Blood Pressure 149/70 04/27/19 06:00 O2 Sat by Pulse Oximetry (%) 100 04/27/19 08:00 Constitutional: Yes: No Distress, Calm Cardiovascular: Yes: S1, S2 Respiratory: Yes: Other (trach) Gastrointestinal: Yes: Normal Bowel Sounds, Soft, Other (peg in place) Musculoskeletal: Yes: WNL Extremities: Yes: WNL Neurological: Yes: Alert Psychiatric: Yes: Other Labs: CBC, BMP 04/26/19 07:50 04/26/19 07:50 INR, PTT INR 0.97 (0.83-1.09) 04/20/19 07:40 Assessment/Plan Problem List - Problems (1) Aspiration into airway Code(s): T17.908A - UNSP FB IN RESP TRACT, PART UNSP CAUSING OTH INJURY, INIT (2) Chronic respiratory insufficiency Code(s): R06.89 - OTHER ABNORMALITIES OF BREATHING (3) Coffee ground emesis Code(s): K92.0 - HEMATEMESIS (4) DVT (deep venous thrombosis) Code(s): I82.409 - ACUTE EMBOLISM AND THOMBOS UNSP DEEP VN UNSP LOWER EXTREMITY (5) Glaucoma Code(s): H40.9 - UNSPECIFIED GLAUCOMA 6 uti patient now esbl plan continue abx needs meropenam for a total of 14 days
[2019-04-27] MEDS: FERROUS SO4 300 MG/5 ML ORAL SOLN UNIT DOSE CUPS GT SCH (11:59)
[2019-04-27] MEDS: PANTOPRAZOLE SOD 40 MG SUSPENSION PACKET NGT SCH (11:59)
[2019-04-27] MEDS: BRIMONIDINE TARTRATE 0.15% OPHTHALMIC 5 ML BOTTLE OU SCH (11:59)
[2019-04-27] MEDS: POLYETHYLENE GLYCOL 3350 119 GM BTL GT SCH (12:00)
[2019-04-27] MEDS ORDERED: PNEUMOC 13-VAL CONJ-DIP CRM/PF 0.5 ML DISP.SYRIN IM ONE (16:08)
[2019-04-27 18:07] VITALS: BP 143/71; PULSE 94; TEMP 98.2
== END 2019-04-27 17:09 | DRG 207 ==
LOC: JER 12:19 → JERBED 19:12 → J5S 04-20 00:57
PROVIDERS: ADMIT Family Medicine; ATTEND Family Medicine
PROC: 5A1955Z Respiratory Ventilation, Greater than 96 Consecutive Hours (ICD-10-PCS; principal; 2019-04-19)
PROC: 0DJ08ZZ Inspection of Upper Intestinal Tract, Via Natural or Artificial Opening Endoscopic (ICD-10-PCS; 2019-04-22)
PROC: 30233N1 Transfusion of Nonautologous Red Blood Cells into Peripheral Vein, Percutaneous Approach (ICD-10-PCS; 2019-04-23)
PROC: 0DJD8ZZ Inspection of Lower Intestinal Tract, Via Natural or Artificial Opening Endoscopic (ICD-10-PCS; 2019-04-26)
PROC: 02HV33Z Insertion of Infusion Device into Superior Vena Cava, Percutaneous Approach (ICD-10-PCS; 2019-04-27)
PROC: B518ZZA Fluoroscopy of Superior Vena Cava, Guidance (ICD-10-PCS; 2019-04-27)
PROC: B548ZZA Ultrasonography of Superior Vena Cava, Guidance (ICD-10-PCS; 2019-04-27)
DX: T17.818A Gastric contents in other parts of respiratory tract causing other injury, initial encounter (principal); R64 Cachexia; E46 Unspecified protein-calorie malnutrition; J98.11 Atelectasis; J96.10 Chronic respiratory failure, unspecified whether with hypoxia or hypercapnia; R71.0 Precipitous drop in hematocrit; Z99.11 Dependence on respirator [ventilator] status; N39.0 Urinary tract infection, site not specified; B96.29 Other Escherichia coli [E. coli] as the cause of diseases classified elsewhere; Z16.12 Extended spectrum beta lactamase (ESBL) resistance; Z68.21 Body mass index [BMI] 21.0-21.9, adult; Z86.718 Personal history of other venous thrombosis and embolism; Z93.0 Tracheostomy status; Z93.1 Gastrostomy status; G70.00 Myasthenia gravis without (acute) exacerbation; K44.9 Diaphragmatic hernia without obstruction or gangrene; K31.819 Angiodysplasia of stomach and duodenum without bleeding; K57.30 Diverticulosis of large intestine without perforation or abscess without bleeding; Y84.8 Other medical procedures as the cause of abnormal reaction of the patient, or of later complication, without mention of misadventure at the time of the procedure; Y92.122 Bedroom in nursing home as the place of occurrence of the external cause; Y93.89 Activity, other specified; Y99.8 Other external cause status; H40.9 Unspecified glaucoma; Z87.11 Personal history of peptic ulcer disease; G89.4 Chronic pain syndrome
CPT/HCPCS: 36415; 36430; 36569; 71045-TC-FY; 74019-TC-FY; 77001-TC-FY; 80053; 81003; 82272; 82550; 82728; 83516; 83540; 83550; 83605; 83615; 83735; 84100; 84155; 84165; 84484; 85025; 85027; 85044; 85610; 85730; 86850; 86900; 86901; 86922; 87040; 87086; 87186; 90670; 93005; 93010; 94002; 94640; 99285-25; C1751; J7030; P9038; P9058